=== PATIENT | female | born 2000 | race Caucasian/White ===

== ENCOUNTER 2022-07-14 17:02 | Emergency (ER) | payer MEDICAID, SELFPAY ==
[2022-07-14 17:15] VITALS: BP 155/82; PULSE 61; RESP 18; TEMP 36.1; O2SAT 100; BMI 58.5
--- NOTE | 2022-07-14 17:28 | ED.EAR ---
HPI - Ear Problem General Chief complaint: Ear Problems Stated complaint: right ear pain, discharge Time Seen by Provider: 07/14/22 17:25 Source: patient Mode of arrival: ambulatory Limitations: no limitations History of Present Illness HPI Narrative: Patient is a 22-year-old female who presents to the emergency department for evaluation of right ear pain intermittently over the past week, pain eventually subsided and then she experienced muffled hearing and clear drainage. Denies any trauma or injury to the ear. Denies any external ear pain. Denies fevers, chills, headache, rhinorrhea, nasal congestion, sore throat, neck pain, neck stiffness. Related Data Previous Rx's Medication Instructions Recorded amoxicillin 875 mg-potassium 1 tab PO Q12H 7 days #14 tabs 07/14/22 clavulanate 125 mg tablet Allergies Allergy/AdvReac Type Severity Reaction Status Date / Time No Known Allergies Allergy Unverified 05/30/20 16:39 Review of Systems Review of Systems: Constitutional: No weight loss, fever, chills, weakness or fatigue. ENT: Positive right ear drainage, pain Skin: No rash or itching. Cardiovascular: No chest pain, no palpitations Respiratory: No shortness of breath, or cough Gastrointestinal: No nausea, vomiting or diarrhea. No abdominal pain Genitourinary: No burning micturition. No urinary frequency or incontinence. Musculoskeletal: No muscle pain, back pain, joint pain or stiffness. Psychiatric: No depression or anxiety. Yes all other systems are reviewed and are negative PMFSH Past Medical History Attestation statement: The following information was validated with the patient. Source: old records reviewed Social History Social History Advance Directives: No Advance Directives Information Provided: No Physical Exam Vital Signs: Vital Signs: Last Vital Signs Temp 97.0 F 07/14/22 17:15 Pulse 61 07/14/22 17:15 Resp 18 07/14/22 17:15 BP 155/82 H 07/14/22 17:15 Pulse Ox 100 07/14/22 17:15 O2 Del Method 07/14/22 17:15 BMI result Body Mass Index 58.5 Appearance: Alert.?Oriented to person, place and time. No acute distress.?Normal affect. Eyes: Pupils equal, round and reactive to light.? ENT: Pharynx normal.??Left TM normal. Right canal, visualized black rim with central yellow discoloration appearing purulent, TM does not appear to be visualize. CVS: Heart sounds normal. Normal heart rate and rhythm.? Pulses normal.?? Respiratory: No respiratory distress.? Lung sounds clear to auscultation bilaterally?? Abdomen: Soft and non-tender. Normoactive bowel sounds. Skin: Skin warm and dry.? Normal skin color.? Extremities: No lower extremity edema.? Neuro: Moves all extremities spontaneously. Sensation intact bilaterally. No focal neuro deficits. Ambulates with normal steady gait. Course Course Course Narrative: Patient is a 22-year-old female presents emergency department for evaluation of right ear pain, discharge, and muffled hearing. Given appearance of right ear canal and history and symptoms concerning for ruptured tympanic membrane with infection at this time. Discussed with patient plan of care for discharge home, no water to the ear, no submerging the head in water, given prescription for oral antibiotic, advised outpatient follow-up with ENT/PCP. Reviewed worsening signs and symptoms to return back to emergency department for. All questions were answered, patient discharged home in stable condition. Discharge Plan Discharge Clinical Impression: Otitis media with rupture of tympanic membrane Patient Disposition: Home, Self-Care Instructions: Ruptured Eardrum (ED), Ear Infection (ED) Additional Instructions: No swimming, submerging the head under water, use of ear bud head phones. The ear should be kept dry, you can insert a cotton ball to the ear while showering Your eardrum may heal on its own, however you should follow-up with ear nose throat/ ENT specialist you have been given contact info for [facility]. Return to emergency department any new or worsening symptoms or concerns. Follow-up with your primary care provider Prescriptions: New amoxicillin-pot clavulanate 875-125 mg tablet 1 tab PO Q12H 7 Days Qty: 14 0RF Referrals: Srikanth Phillips [Physician] - Discharge Date/Time: 07/14/22 18:09
== END 2022-07-14 18:09 | disposition home or self-care (01) ==
PROVIDERS: Emergency Provider Student in an Organized Health Care Education/Training Program
DX: H66.011 Acute suppurative otitis media with spontaneous rupture of ear drum, right ear (principal)
CPT/HCPCS: 99281

== ENCOUNTER 2023-01-01 12:42 | Emergency (ER) | payer OTHER, SELFPAY ==
[2023-01-01 12:49] VITALS: BP 171/94; PULSE 90; RESP 16; TEMP 36.7; O2SAT 100; BMI 60.3
--- NOTE | 2023-01-01 12:50 | ED.GENADULT ---
HPI - General Adult General Chief complaint: Skin/Abscess/Foreign Body <Quincy Puente - Last Filed: 01/01/23 12:51> Stated complaint: Abscess Vag Area <Quincy Puente - Last Filed: 01/01/23 12:51> Time Seen by Provider: 01/01/23 13:44 <Quincy Puente - Last Filed: 01/01/23 12:51> History of Present Illness HPI narrative: Patient complains of left labial abscess for over a week, the area is painful increasingly swollen no fever no chills no vomiting no dysuria no abdominal pain no vaginal discharge <RITCHIE Yarbrough - Last Filed: 01/03/23 13:11> Related Data Home medications: Previous Rx's Medication Instructions Recorded amoxicillin 875 mg-potassium 1 tab PO Q12H 7 days #14 tabs 07/14/22 clavulanate 125 mg tablet doxycycline hyclate 100 mg capsule 100 mg PO BID 7 days #14 caps 01/01/23 ibuprofen 600 mg tablet 600 mg PO Q6H PRN pain #20 tabs 01/01/23 oxycodone 5 mg tablet 5 mg PO Q6H PRN pain #10 tabs 01/01/23 <Quincy Puente - Last Filed: 01/01/23 12:51> Allergies/adverse reactions: Allergies Allergy/AdvReac Type Severity Reaction Status Date / Time No Known Allergies Allergy Unverified 05/30/20 16:39 <Quincy Puente - Last Filed: 01/01/23 12:51> [facility] Past Medical History Source: nursing notes reviewed <RITCHIE Yarbrough - Last Filed: 01/03/23 13:11> Social History Social History: Social History Advance Directives: No <Quincy Puente - Last Filed: 01/01/23 12:51> Physical Exam ED Vital Signs: Vital Signs - 24 hr 01/01/23 12:49 Temperature 98.1 F Pulse Rate 90 Respiratory Rate 16 Blood Pressure 171/94 H Pulse Oximetry 100 Oxygen Delivery Method Room Air BMI result Body Mass Index 60.3 <Quincy Puente - Last Filed: 01/01/23 12:51> Vital Signs - 24 hr 01/01/23 12:49 Temperature 98.1 F Pulse Rate 90 Respiratory Rate 16 Blood Pressure 171/94 H Pulse Oximetry 100 Oxygen Delivery Method Room Air BMI result Body Mass Index 60.3 <RITCHIE Yarbrough - Last Filed: 01/03/23 13:11> General appearance no distress Neck is supple Respiratory no distress Abdomen soft nontender Genital exam there is of the area of redness swelling and fluctuance in left labia without any surrounding erythema or cellulitis, no obvious discharge no other lesions <RITCHIE Yarbrough - Last Filed: 01/03/23 13:11> Course Course Course Narrative: RME- 22-year-old female presents for evaluation of a cyst to her groin. Reports this started 4 days ago. Denies fevers and chills <Quincy Puente - Last Filed: 01/01/23 12:51> RME- 22-year-old female presents for evaluation of a cyst to her groin. Reports this started 4 days ago. Denies fevers and chills Left labial abscess procedure note The area is cleansed with Betadine Anesthesia was 8 cc of 1% lidocaine Of 0 1 cm incision is made It was probed with forceps breaking up loculations with discharge of copious bloody pus Packing is placed Dressing is applied <RITCHIE Yarbrough - Last Filed: 01/03/23 13:11> Medications Administered Discontinued Medications Generic Name Dose Route Start Last Admin Trade Name Freq PRN Reason Stop Dose Admin Doxycycline Monohydrate 100 mg 01/01/23 14:48 01/01/23 14:54 Doxycycline Monohydrate 100 Mg Capsule PO 01/01/23 14:49 100 mg ONCE ONE Administration Lidocaine HCl 5 ml 01/01/23 14:48 01/01/23 14:54 Lidocaine Hcl 1 % Mpf 5 Ml Vial SUBCUT 01/01/23 14:49 5 ml ONCE ONE Administration Lidocaine HCl 5 ml 01/01/23 14:48 01/01/23 14:55 Lidocaine Hcl 1 % Mpf 5 Ml Vial SUBCUT 01/01/23 14:49 5 ml ONCE ONE Administration <Quincy Puente - Last Filed: 01/01/23 12:51> Medications Administered Discontinued Medications Generic Name Dose Route Start Last Admin Trade Name Freq PRN Reason Stop Dose Admin Doxycycline Monohydrate 100 mg 01/01/23 14:48 01/01/23 14:54 Doxycycline Monohydrate 100 Mg Capsule PO 01/01/23 14:49 100 mg ONCE ONE Administration Lidocaine HCl 5 ml 01/01/23 14:48 01/01/23 14:54 Lidocaine Hcl 1 % Mpf 5 Ml Vial SUBCUT 01/01/23 14:49 5 ml ONCE ONE Administration Lidocaine HCl 5 ml 01/01/23 14:48 01/01/23 14:55 Lidocaine Hcl 1 % Mpf 5 Ml Vial SUBCUT 01/01/23 14:49 5 ml ONCE ONE Administration <RITCHIE Yarbrough - Last Filed: 01/03/23 13:11> Discharge Plan Discharge Clinical Impression: Abscess of labia <Quincy Puente - Last Filed: 01/01/23 12:51> Patient Disposition: Home, Self-Care <Quincy Puente - Last Filed: 01/01/23 12:51> Additional Instructions: Pus was drained from the area but it remains swollen and inflamed Use doxycycline antibiotic as directed Return to the ER any time for increased pain swelling fever any worse condition or any concerns Return to the ER in 2 days for packing removal and wound check Follow with pipe organ technician <Quincy Puente - Last Filed: 01/01/23 12:51> Prescriptions: New doxycycline hyclate 100 mg capsule 100 mg PO BID 7 Days Qty: 14 0RF ibuprofen 600 mg tablet 600 mg PO Q6H PRN (Reason: pain) Qty: 20 0RF oxycodone 5 mg tablet 5 mg PO Q6H PRN (Reason: pain) Qty: 10 0RF Rx Instructions: Partial Fill upon patient request. No Action amoxicillin-pot clavulanate 875-125 mg tablet 1 tab PO Q12H 7 Days Qty: 14 0RF <Quincy Puente - Last Filed: 01/01/23 12:51> Referrals: Rajesh Li MD [Physician] - (Labial abscess) <Quincy Puente - Last Filed: 01/01/23 12:51> Stand Alone Forms: Work/School Release <Quincy Puente - Last Filed: 01/01/23 12:51> Interventions: ED Discharge Assessment Last Done: 01/01/23 15:30 <Quincy Puente - Last Filed: 01/01/23 12:51> Discharge Date/Time: 01/01/23 15:30 <Quincy Puente - Last Filed: 01/01/23 12:51>
[2023-01-01] MEDS: Lidocaine HCl 1 % MPF 5 ML VIAL SUBCUT ×2 (14:54→14:55)
[2023-01-01] MEDS: Doxycycline Monohydrate 100 MG CAPSULE PO (14:54)
== END 2023-01-01 15:30 | disposition home or self-care (01) ==
PROVIDERS: Emergency Provider Emergency Medicine Emergency Medical Services
DX: N76.4 Abscess of vulva (principal); Z79.899 Other long term (current) drug therapy
CPT/HCPCS: 56405; 87070; 87205; 99282; 99283; 99284

== ENCOUNTER 2023-01-03 14:41 | Emergency (ER) | payer OTHER, SELFPAY ==
[2023-01-03 15:14] VITALS: BP 153/86; PULSE 91; RESP 18; TEMP 36.6; O2SAT 98; BMI 60.3
--- NOTE | 2023-01-03 15:16 | ED.GENADULT ---
HPI - General Adult General Chief complaint: Skin/Abscess/Foreign Body <Quincy Puente - Last Filed: 01/03/23 15:17> Stated complaint: Needs packing removed from abscess <Quincy Puente - Last Filed: 01/03/23 15:17> Time Seen by Provider: 01/03/23 16:42 <Quincy Puente - Last Filed: 01/03/23 15:17> History of Present Illness HPI narrative: Patient presents for wound check after I&D of left labial abscess 2 days ago, patient states it has improved but it still hurts, denies any fever denies any increased swelling <RITCHIE Yarbrough - Last Filed: 01/03/23 17:09> Related Data Home medications: Previous Rx's Medication Instructions Recorded amoxicillin 875 mg-potassium 1 tab PO Q12H 7 days #14 tabs 07/14/22 clavulanate 125 mg tablet doxycycline hyclate 100 mg capsule 100 mg PO BID 7 days #14 caps 01/01/23 ibuprofen 600 mg tablet 600 mg PO Q6H PRN pain #20 tabs 01/01/23 oxycodone 5 mg tablet 5 mg PO Q6H PRN pain #10 tabs 01/01/23 acetaminophen 500 mg tablet 1,000 mg PO QID PRN pain #30 tabs 01/03/23 oxycodone 5 mg tablet 5 mg PO Q6H PRN pain #5 tabs 01/03/23 <Quincy Puente - Last Filed: 01/03/23 15:17> Allergies/adverse reactions: Allergies Allergy/AdvReac Type Severity Reaction Status Date / Time No Known Allergies Allergy Verified 01/03/23 15:14 <Quincy Puente - Last Filed: 01/03/23 15:17> [facility] Past Medical History Source: nursing notes reviewed <RITCHIE Yarbrough - Last Filed: 01/03/23 17:09> Social History Social History: Social History Advance Directives: No Advance Directives Information Provided: Yes <Quincy Puente - Last Filed: 01/03/23 15:17> Physical Exam ED Vital Signs: Vital Signs - 24 hr 01/03/23 15:14 Temperature 97.9 F Pulse Rate 91 Respiratory Rate 18 Blood Pressure 153/86 H Pulse Oximetry 98 Oxygen Delivery Method Room Air BMI result Body Mass Index 60.3 <Quincy Puente - Last Filed: 01/03/23 15:17> Vital Signs - 24 hr 01/03/23 15:14 Temperature 97.9 F Pulse Rate 91 Respiratory Rate 18 Blood Pressure 153/86 H Pulse Oximetry 98 Oxygen Delivery Method Room Air BMI result Body Mass Index 60.3 <RITCHIE Yarbrough - Last Filed: 01/03/23 17:09> General appearance no acute distress, common cooperative Genital exam packing is removed from left labial abscess cavity which is much less swollen no longer red there is no fluctuance there is some induration, no surrounding erythema <RITCHIE Yarbrough - Last Filed: 01/03/23 17:09> Course Course Course Narrative: 22-year-old female presents for evaluation of an abscess to her left groin. She was seen here 2 days ago and had an abscess drained and packed. She reports that she is here for packing removal but still has pain and swelling to the area. Not visualized triage <Quincy Puente - Last Filed: 01/03/23 15:17> 22-year-old female presents for evaluation of an abscess to her left groin. She was seen here 2 days ago and had an abscess drained and packed. She reports that she is here for packing removal but still has pain and swelling to the area. Not visualized triage Status post I&D of left labial abscess which was done by me 2 days ago, there is much less swelling there is no longer any fluctuance there is still induration, erythema is very improved, no surrounding erythema After packing was removed a new dressing is placed and patient is discharged <RITCHIE Yarbrough - Last Filed: 01/03/23 17:09> Discharge Plan Discharge Clinical Impression: Wound check, abscess <Quincy Puente - Last Filed: 01/03/23 15:17> Patient Disposition: Home, Self-Care <Quincy Puente - Last Filed: 01/03/23 15:17> Additional Instructions: The abscess looks very improved and no longer feels like there is any fluid in it Thickened infected tissue is still present but very improved from last time, redness is very improved and likely this will continue improve day by day Return any time for increased pain and swelling, spreading redness, fever, any sign of reaccumulation of abscess any worse condition or any concerns <Quincy Puente - Last Filed: 01/03/23 15:17> Prescriptions: New acetaminophen 500 mg tablet 1,000 mg PO QID PRN (Reason: pain) Qty: 30 0RF oxycodone 5 mg tablet 5 mg PO Q6H PRN (Reason: pain) Qty: 5 0RF Rx Instructions: Partial Fill upon patient request. No Action amoxicillin-pot clavulanate 875-125 mg tablet 1 tab PO Q12H 7 Days Qty: 14 0RF doxycycline hyclate 100 mg capsule 100 mg PO BID 7 Days Qty: 14 0RF ibuprofen 600 mg tablet 600 mg PO Q6H PRN (Reason: pain) Qty: 20 0RF oxycodone 5 mg tablet 5 mg PO Q6H PRN (Reason: pain) Qty: 10 0RF Rx Instructions: Partial Fill upon patient request. <Quincy Puente - Last Filed: 01/03/23 15:17> Referrals: Rajesh Li MD [Physician] - (Post I and D of labial abscess) <Quincy Puente - Last Filed: 01/03/23 15:17> Stand Alone Forms: Work/School Release <Quincy Puente - Last Filed: 01/03/23 15:17>
== END 2023-01-03 17:24 | disposition home or self-care (01) ==
PROVIDERS: Emergency Provider Emergency Medicine Emergency Medical Services
DX: N76.4 Abscess of vulva (principal)
CPT/HCPCS: 99282

== ENCOUNTER 2025-06-07 18:54 | Emergency (ER) | payer OTHER, MEDICAID, SELFPAY ==
--- NOTE | 2025-06-07 | ECG_ITS ---
Test Reason : FALL Blood Pressure : */* mmHG Vent. Rate : 82 BPM Atrial Rate : 82 BPM P-R Int : 160 ms QRS Dur : 78 ms QT Int : 384 ms P-R-T Axes : 33 6 6 degrees QTcB Int : 448 ms Normal sinus rhythm Minimal voltage criteria for LVH, may be normal variant ( R in aVL ) Cannot rule out Anterior infarct , age undetermined Abnormal ECG When compared with ECG of 21-Jan-2019 06:35, No significant change was found Referred By: Generic ED Physician Electronically Signed By: Renny Flowers
--- NOTE | ~2025-06-07 | XR_ITS ---
CLINICAL HISTORY: fall with pain 3 view right elbow Comparison: None provided Findings: No acute fractures. Normal alignment. No significant arthritic change or erosions. No joint effusion. No radiopaque foreign body. IMPRESSION: 1. No acute fracture. This document has been electronically signed by: Libertad Fletcher MD on 06/07/2025 20:30:37
--- NOTE | ~2025-06-07 | CT_ITS ---
CLINICAL HISTORY: neck trauma CT cervical spine without contrast Comparison: None provided Findings: Straightening of the normal cervical lordosis. No significant degenerative change. No acute fractures or dislocations. Visualized intracranial contents are unremarkable. No cervical fluid collections or masses. Lung apices are clear. IMPRESSION: No acute traumatic abnormality in the cervical spine. This document has been electronically signed by: Libertad Fletcher MD on 06/07/2025 21:55:15
--- NOTE | ~2025-06-07 | CT_ITS ---
CLINICAL HISTORY: head trauma CT head without contrast Comparison: None provided Findings: BRAIN: No acute infarct, hemorrhage, or mass effect. No abnormal atrophy. CSF SPACES: No hydrocephalus or effacement of basal cisterns. SKULL: No calvarial fracture. SINUSES: No significant mucosal thickening or effusion on limited views. ORBITS: Limited views are unremarkable. OTHER: Left frontal scalp hematoma. IMPRESSION: 1. No acute intracranial findings. This document has been electronically signed by: Libertad Fletcher MD on 06/07/2025 21:56:03
[2025-06-07 18:59] VITALS: BP 142/84; PULSE 102; O2SAT 98; BMI 65.0
[2025-06-07 19:34] LABS: MANUAL DIFF FLAG NO
[2025-06-07 19:37] LABS: Hematocrit 36.0 % (37.0-47.0); Hemoglobin 11.9 g/dl (12.0-16.0); Imm Gran Abs Auto 0.02 X10*3/uL (0.00-0.03); Imm Gran Pct Auto 0.2 % (0.0-0.4); Lymphocytes Absolute Auto 2.4 X10*3/uL (1.2-4.9); Mean Corpuscular HGB Conc 33.1 g/dl (31.0-35.0); Mean Corpuscular Hemoglobin 27.0 pg (27.0-33.0); Mean Corpuscular Volume 81.6 fL (80.0-98.0); NRBC Abs Auto 0.000 X10*3/uL (0.0-0.012); NRBC Pct Auto 0.0 /100WBC (0.0-0.2); Platelet Count 356 X10*3/uL (160-400); Red Blood Count 4.41 X10*6/uL (4.20-5.50); White Blood Count 8.9 X10*3/uL (4.8-10.8)
[2025-06-07] MEDS: oxyCODONE HCl Immed Release 5 MG TABLET PO (19:41)
[2025-06-07 19:50] LABS: Alanine Aminotransferase 21 U/L (0-31); Albumin Level 4.0 g/dL (3.5-5.0); Alkaline Phosphatase 104 U/L (39-117); Anion Gap 14 (12-20); Aspartate Amino Transferase 39 U/L (5-31); Blood Urea Nitrogen 7 mg/dL (9-16); Calcium 8.7 mg/dL (8.4-10.2); Carbon Dioxide 22 mmol/L (22-29); Chloride 107 mmol/L (96-108); Creatinine Clr Calc Pharmacy 150.0; Estimated Glomerular Filt Rate > 60; Potassium 4.2 mmol/L (3.3-5.1); Sodium 139 mmol/L (135-145); Total Protein 7.6 g/dL (6.5-8.0)
--- NOTE | 2025-06-07 19:56 | ED.GENADULT ---
HPI - General Adult General Chief complaint: Fall Stated complaint: Head 1st down 4 cement stairs -LOC, no pain Time Seen by Provider: 06/07/25 19:17 Source: patient Mode of arrival: ambulatory Limitations: no limitations History of Present Illness ED Provider: Dr. Cole HPI narrative: 25-year-old female presented hospital today after a fall. Patient has fell down concrete steps and landed on her left face. She is complaining of pain over her left periorbital area. Denies any loss of consciousness. 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 Denies any injury in her other extremities or abdomen or chest. Related Data Previous Rx's ?Medication ?Instructions ?Recorded amoxicillin 875 mg-potassium 1 tab PO Q12H 7 days #14 tabs 07/14/22 clavulanate 125 mg tablet doxycycline hyclate 100 mg capsule 100 mg PO BID 7 days #14 caps 01/01/23 ibuprofen 600 mg tablet 600 mg PO Q6H PRN pain #20 tabs 01/01/23 oxycodone 5 mg tablet 5 mg PO Q6H PRN pain #10 tabs 01/01/23 acetaminophen 500 mg tablet 1,000 mg (2 x 500 mg) PO QID PRN 01/03/23 pain #30 tabs oxycodone 5 mg tablet 5 mg PO Q6H PRN pain #5 tabs 01/03/23 oxycodone 5 mg tablet 5 mg PO Q8H PRN pain #10 tabs 06/07/25 Allergies Allergy/AdvReac Type Severity Reaction Status Date / Time No Known Allergies Allergy Verified 06/07/25 19:03 Review of Systems Review of Systems: Pertinent review of systems as mentioned in HPI. All other system otherwise negative. [facility] Past Medical History [facility] Narrative: Medical history as mentioned in [facility] Social History Social History Smoked in Last 30 Days: No Use of substances other than those prescribed or required for medical reasons: No Advance Directives: No Advance Directives Information Provided: Yes Physical Exam ED Exam Exam: General: Pleasant, no distress, interacting appropriately Head: Normacephalic, abrasion of the left periorbital area and left upper philtrum of the lip ENT: oral mucosa moist, neck supple, no tracheal deviation Cardiovascular: regular rate, regular rhythm, no murmurs, rubbing, gallops, no ecchymosis Respiratory: CTAB, no wheeze, rales, rhonchi Gastrointestinal: Soft, non distended, non tender, non guarding, no ecchymosis Extremities: No limb pain or swelling, no calf tenderness Neurological: Awake and alert, no facial droop noted Skin: Warm and dry Psychiatric: Appropriate mood and thoughts Vital Signs: Vital Signs - 24 hr 06/07/25 22:03 06/07/25 22:43 06/07/25 22:43 Temperature 98.3 F 98.3 F 98.3 F Pulse Rate 84 84 84 Respiratory Rate 20 20 20 Blood Pressure 156/94 H 156/94 H 156/94 H Pulse Oximetry 96 96 96 Oxygen Delivery Method Room Air Room Air Room Air BMI result Body Mass Index 65.0 Medications Administered Discontinued Medications Generic Name Dose Route Start Last Admin Trade Name Freq PRN Reason Stop Dose Admin Acetaminophen 975 mg 06/07/25 22:01 06/07/25 22:04 Acetaminophen 325 Mg Tablet PO 06/07/25 22:02 975 mg ONCE ONE Administration Diphtheria/Tetanus/Acell Pertussis 0.5 ml 06/07/25 20:28 06/07/25 20:43 Diphth,Pertus(Acell),Tet Adult 0.5 Ml Syringe IM 06/07/25 20:29 0.5 ml .ONCE ONE Administration Oxycodone HCl 5 mg 06/07/25 19:18 06/07/25 19:41 Oxycodone Hcl Immed Release 5 Mg Tablet PO 06/07/25 19:19 5 mg ONCE ONE Administration Medical Decision Making Medical Decision Making [facility] Narrative: 25-year-old female presented hospital today after sustained an abrasion to her left-sided face after falling. This wound was cleaned out and irrigated and dressed. Patient's CT imaging was obtained a CT C-spine was obtained this were negative. Tylenol given for headache. Patient has no further signs of traumatic injury. Patient will be discharged home. Differential Diagnosis Differential Diagnoses: The differential diagnosis associated with the presentation includes Intracranial hemorrhage, cervical spine fracture, abrasion, facial laceration Lab Data [facility] Lab Attestation statement: I reviewed the patient's lab results. 06/07/25 19:31 06/07/25 19:31 Labs: Lab Results 09/25/25 Range/Units 19:31 WBC 8.9 (4.8-10.8) X10*3/uL RBC 4.41 (4.20-5.50) X10*6/uL Hgb 11.9 L (12.0-16.0) g/dl Hct 36.0 L (37.0-47.0) % MCV 81.6 (80.0-98.0) fL MCH 27.0 (27.0-33.0) pg MCHC 33.1 (31.0-35.0) g/dl RDW 12.1 (11.0-16.0) % Plt Count 356 (160-400) X10*3/uL MPV 9.6 (9.4-12.3) fL Immature Gran % (Auto) 0.2 (0.0-0.4) % Neut % (Auto) 67.0 (45-73) % Lymph % (Auto) 27.1 (20-40) % Randall % (Auto) 4.4 (2-11) % Eos % (Auto) 1.0 (0-4) % Baso % (Auto) 0.3 (0-2) % Lymph # (Auto) 2.4 (1.2-4.9) X10*3/uL Randall # (Auto) 0.4 (0.1-1.2) X10*3/uL Eos # (Auto) 0.1 (0.0-0.4) X10*3/uL Baso # (Auto) 0.0 (0.0-0.2) X10*3/uL Abs Immat Gran (auto) 0.02 (0.00-0.03) X10*3/uL Absolute Neuts (auto) 5.9 (2.0-8.3) x10*3/uL Absolute Nucleated RBC 0.000 (0.0-0.012) X10*3/uL Nucleated RBC % (auto) 0.0 (0.0-0.2) /100WBC Sodium 139 (135-145) mmol/L Potassium 4.2 (3.3-5.1) mmol/L Chloride 107 (96-108) mmol/L Carbon Dioxide 22 (22-29) mmol/L Anion Gap 14 (12-20) BUN 7 L (9-16) mg/dL Creatinine 0.84 (0.5-1.4) mg/dL Estim Creat Clear Calc 150.0 Estimated GFR > 60 Random Glucose 121 H (60-115) mg/dL Calcium 8.7 (8.4-10.2) mg/dL Total Bilirubin 0.3 (0.0-1.0) mg/dL AST 39 H (5-31) U/L ALT 21 (0-31) U/L Alkaline Phosphatase 104 (39-117) U/L Total Protein 7.6 (6.5-8.0) g/dL Albumin 4.0 (3.5-5.0) g/dL Beta HCG, Quant < 2 mIU/mL Independent Interpretation I performed an independent interpretation of an: CT Scan Radiology Impression Discussion of test interpretation with radiology: I have reviewed the radiologist's reading. Discharge Plan Discharge Clinical Impression: Abrasion Fall Qualifiers: Encounter type: initial encounter Qualified Code(s): W19.XXXA - Unspecified fall, initial encounter Patient Disposition: Home, Self-Care Prescriptions: New oxycodone 5 mg tablet 5 mg PO Q8H PRN (Reason: pain) Qty: 10 0RF Rx Instructions: Partial Fill upon patient request. No Action amoxicillin-pot clavulanate 875-125 mg tablet 1 tab PO Q12H 7 Days Qty: 14 0RF doxycycline hyclate 100 mg capsule 100 mg PO BID 7 Days Qty: 14 0RF ibuprofen 600 mg tablet 600 mg PO Q6H PRN (Reason: pain) Qty: 20 0RF oxycodone 5 mg tablet 5 mg PO Q6H PRN (Reason: pain) Qty: 10 0RF Rx Instructions: Partial Fill upon patient request. acetaminophen 500 mg tablet 1,000 mg PO QID PRN (Reason: pain) Qty: 30 0RF oxycodone 5 mg tablet 5 mg PO Q6H PRN (Reason: pain) Qty: 5 0RF Rx Instructions: Partial Fill upon patient request. Interventions: ED Discharge Assessment Last Done: 06/07/25 22:43 Discharge Date/Time: 06/07/25 22:43 Print Language: Portuguese
--- OUTSIDE RECORDS SUMMARY | 2025-06-07 20:18 | XMS_ITS | Encounter Summary ---
Author Organization [facility] Address [address] [place] [address] Care Team Providers Care Optical Goods Worker Name Role Phone Jada Chicas PhD Unavailable [phone] Sheridan Drew APRN Primary Care Provider [phone] Perla Lepe MD Unavailable Encounter Details Date Type Department Care Team (Late st Contact Info) Description 07/19/2023 Scanned Document [facility] EMERGENCY MED SCAN Emergency Medicine, Scan Social History Tobacco Use Types Packs/Day Years Used Date Smoking Tobacco: Never Smokeless Tobacco: Never Alcohol Use Standard Drinks/Week Comments Not Currently 0 (1 standard drink = 0.6 oz pur e alcohol) Social Connection and Isolat ion Panel [NHANES] Answer Date Recorded In a typical week, how many times do you talk on the phone with family, friends, or neighbors? More than three times a week 06/02/2022 How often do you get togethe r with friends or relatives? Once a week 06/02/2022 How often do you attend chur or pentecostalism services? Never 06/02/2022 Do you belong to any clubs o r organizations such as episcopal groups, unions, fraternal or athletic groups, or school groups? No 06/02/2022 How often do you attend meet ings of the clubs or organizations you belong to? Patient declined 06/02/2022 Are you , , di vorced, , never , or living with a partner? 06/02/2022 AUDIT-C Answer Date Recorded Q1: How often do you have a drink containing alc ohol? 2-4 times a month 06/02/2022 Q2: How many drinks containi ng alcohol do you have on a typical day when you are drinking? 1 or 2 06/02/2022 Q3: How often do you have si x or more drinks on one occasion? Never 06/02/2022 Overall Financial Resource Strain (CARDIA) Answe r Date Recorded How hard is it for you to pa y for the very basics like food, housing, medical care, and heating? Somewhat hard 06/02/2022 PHQ-2 Answer Date Recorded PHQ-2 Total Score 0 10/16/2021 [facility] of Occupat ional [facility] - Occupational Stress Questionnaire Answer Date Recorded Do you feel stress - tense, restless, nervous, or anxious, or unable to sleep at night because your mind is troubled all the time - these days? Very much 06/02/2022 Hunger Vital Sign Answer Date Recorded Within the past 12 months, y ou worried that your food would run out before you got the money to buy more. Sometimes true Within the past 12 months, t he food you bought just didn't last and you didn't have money to get more. Sometimes true PRAPARE - Transportation Answer Date Re corded In the past 12 months, has l ack of transportation kept you from medical appointments or from getting medications? Yes 05/15 In the past 12 months, has l ack of transportation kept you from meetings, work, or from getting things needed for daily living? No 06/02/2022 Physical Activity Answer Date Recorded Days of Exercise per Week 5 days 2021 Minutes of Exercise per Session 30 min 06/02/2022 Education Answer Date Recorded What is the highest level of school you have completed or the highest degree you have received? 12th grade 06/02/2022 Comments No Sex and Gender Information Value Date Recorded Sex Assigned at Female 08/11/2023 1:13 PM EST Legal Sex Female 1:51 PM EST Gender Identity Female 11/06/2020 1:34 PM EST Sexual Orientation Heterosexual (straight) 11/06 1:34 PM EST documented as of this encounter Plan of Treatment Upcoming Encounters Date Type Department Care Team (Late st Contact Info) Description 06/12/2025 9:00 AM EDT Visit [facility] Women's Ambulatory Health Services [address] [place] [phone] Drea Paredes MD [address] [place] [address] 06/13/2025 2:00 PM EDT Office Visit [facility] Cardiology [place] [address] [place] [address] [place] [phone] Adelso Esparza, SOCIAL DIRECTOR [address] [address] 07/05/2025 3:00 PM EDT Consult [facility] Medical Weight Loss [place] [address] [place] [phone] Sheeba Rojo PA-C 330 [facility] [address] [place] [address] Breonna Orozco PA-C 2 [facility] [address] [place] [address] documented as of this encounter Visit Diagnoses Not on filedocumented in this encounter Care Teams Optical Goods Worker Relationship Specialty Start Date End Date Sheridan Drew APRN [address] [place] [address] PCP - General Family Medicine 08/23/20 Jada Chicas, PhD [address] [facility] [address] [place] [address] Clinical Psychologist Psychology 04/01/20 Perla Lepe MD [address] [place] [address] Obstetrics and Gynecology 12/06/24 documented as of this encounter
--- OUTSIDE RECORDS SUMMARY | 2025-06-07 20:18 | XMS_ITS | Encounter Summary ---
Author Organization [facility] Address [address] [place] [address] Care Team Providers Care Casino Accountant Name Role Phone Jada Chicas PhD Unavailable [phone] Sheridan Drew APRN Primary Care Provider [phone] Perla Lepe MD Unavailable Encounter Details Date Type Department Care Team (Late st Contact Info) Description 06/05/2025 Documentation [facility] Women[facility] Ambulatory Health Services [address] [place] [phone] Gloria Noland RN [address] [place] [address] Social History Tobacco Use Types Packs/Day Years Used Date Smoking Tobacco: Never Smokeless Tobacco: Never Alcohol Use Standard Drinks/Week Comments Not Currently 0 (1 standard drink = 0.6 oz pur e alcohol) [facility] Utilities Answer Date Recorded In the past 12 months has [employer], gas, oil, or water [employer] threatened to shut off services in your home? No 04/29/2025 Social Connection and Isolation Panel [NHANES] A nswer Date Recorded In a typical week, how many times do you talk on the phone with family, friends, or neighbors? Three times a week 02/26/2025 Frequency of Social Gatherin gs with Friends and Family Not on file 02/26/2025 Attends Episcopalian Services Not on file 02/26 Active Member of Clubs or Organizations Not on f ile 02/26/2025 Attends Club or Organization Meetings Not on jacob e 02/26/2025 Marital Status Not on file 02/26/2025 AUDIT-C Answer Date Recorded Q1: How often do you have a drink containing alcohol? Never 04/29/2025 Q2: How many drinks containi ng alcohol do you have on a typical day when you are drinking? Patient does not drink Q3: How often do you have si x or more drinks on one occasion? Never 04/29/2025 Overall Financial Resource Strain (CARDIA) Answe r Date Recorded How hard is it for you to pa y for the very basics like food, housing, medical care, and heating? Somewhat hard 06/02/2022 PHQ-2 Answer Date Recorded PHQ-2 Total Score 0 02/26/2025 [facility] of Occupat ional Health - Occupational Stress Questionnaire Answer Date Recorded Do you feel stress - tense, restless, nervous, or anxious, or unable to sleep at night because your mind is troubled all the time - these days? Not at all 03/20/2024 Hunger Vital Sign Answer Date Recorded Within the past 12 months, y ou worried that your food would run out before you got the money to buy more. Never true 04/29/20 25 Within the past 12 months, t he food you bought just didn't last and you didn't have money to get more. Never true 04/29/2025 PRAPARE - Transportation Answer Date Re corded In the past 12 months, has l ack of transportation kept you from medical appointments or from getting medications? No 04/13 In the past 12 months, has l ack of transportation kept you from meetings, work, or from getting things needed for daily living? No 04/29/2025 [place] Depression Scale Answer Date Recorded [place] Depression Scale Total 0 05/02/2025 The thought of harming myself has occurred to me . Never 05/02/2025 Housing Stability Vital Sign Answer Mack e Recorded In the last 12 months, was t here a time when you were not able to pay the mortgage or rent on time? No 04/29/2025 In the past 12 months, how m any times have you moved where you were living? 0 04/29/2025 At any time in the past 12 m [facility], were you homeless or living in a correction (including now)? No 04/29/2025 Physical Activity Answer Date Recorded On average, how many days pe r week do you engage in moderate to strenuous exercise (like a brisk walk)? 4 days 02/26/2025 On average, how many minutes do you exercise per day at this level? 0 min 02/26/2025 Education Answer Date Recorded What is the highest level of school you have completed or the highest degree you have received? Some college, no degree 02/26/2025 Comments No Sex and Gender Information Value Date Recorded Sex Assigned at Female 08/11/2023 1:13 PM EST Legal Sex Female 1:51 PM EST Gender Identity Female 11/06/2020 1:34 PM EST Sexual Orientation Heterosexual (straight) 11/06 1:34 PM EST documented as of this encounter Progress Notes * Gloria Noland RN - 06/05/2025 3:54 PM EDT Nurse Navigator follow-up message sent to patient via Graph[employer]. (Email or text message sent by system if patient does not have Ritan[employer]). Explanation of role, available services and contact information provided. Appropriate resources given. documented in this encounter Plan of Treatment Upcoming Encounters Date Type Department Care Team (Late st Contact Info) Description 06/12/2025 9:00 AM EDT Visit [facility] Services [address] [place] [phone] Drea Paredes MD [address] [place] [address] 06/13/2025 2:00 PM EDT Office Visit [facility] Cardiology [address] [place] [phone] Adelso Esparza APRN [address] [place] [address] [place] [address] 07/05/2025 3:00 PM EDT Consult [facility] Medical Weight Loss [place] [address] [place], [place] [phone] Sheeba Rojo PA-C 330 [facility] 200 [place] [address] Breonna Orozco PA-C 2 [facility] 100 [place] [address] documented as of this encounter Visit Diagnoses Not on filedocumented in this encounter Care Teams Casino Accountant Relationship Specialty Start Date End Date Sheridan Drew APRN [address] [place] [address] PCP - General Family Medicine 08/23/20 Jada Chicas, PhD 200 [facility], [address] [place] [address] Clinical Psychologist Psychology 04/01/20 Perla Lepe MD [address] [place] [address] Obstetrics and Gynecology 12/06/24 documented as of this encounter
--- OUTSIDE RECORDS SUMMARY | 2025-06-07 20:18 | XMS_ITS | Encounter Summary ---
Author Organization [facility] Address [address] [place] [address] Care Team Providers Care Chief Port Director Name Role Phone Jada Chicas PhD Unavailable [phone] Sheridan Drew APRN Primary Care Provider [phone] Perla Lepe MD Unavailable Encounter Details Date Type Department Care Team (Late st Contact Info) Description 06/04/2025 Telephone [facility] Department of Pulmonology [place] 1260 [facility] [address] [place] [phone] Leyla Cruz MD 1260 [facility] [place] [address] [place], [place] [phone] Social History Tobacco Use Types Packs/Day Years Used Date Smoking Tobacco: Never Smokeless Tobacco: Never Alcohol Use Standard Drinks/Week Comments Not Currently 0 (1 standard drink = 0.6 oz pur e alcohol) [facility] Utilities Answer Date Recorded In the past 12 months has [employer], gas, oil, or water company threatened to shut off services in your home? No 04/29/2025 Social Connection and Isolation Panel [NHANES] A nswer Date Recorded In a typical week, how many times do you talk on the phone with family, friends, or neighbors? Three times a week 02/26/2025 Frequency of Social Gatherin gs with Friends and Family Not on file 02/26/2025 Attends Yarsani Services Not on file 02/26 Active Member [...] Date Recorded PHQ-2 Total Score 0 02/26/2025 [facility] of Occupat ional Health - Occupational Stress [...] things needed for daily living? No 04/29/2025 [place] Depression Scale Answer Date Recorded [place] Depression Scale Total 0 05/02/2025 The thought [...] any time in the past 12 m [facility], were you homeless or living in a fpc (including now)? 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 * Telephone Encounter - Felton Santamaria MA - 06/04/2025 10:22 AM EDT ----- Message from Mushroom Growing Supervisor Felton Leonard MA sent at 05/31/2025 9:05 AM EDT ----- Maria Alejandra contacted me yesterday stated they need a new script isend it a new script today ----- Message ----- From: Felton Santamaria MA Sent: 05/28/2025 1:05 PM EDT To: Felton Santamaria MA; Leyla Blair# I spoke with maria alejandra she is going to get keli sawyer one of the rt to get this set up ----- Message ----- From: Felton Santamaria MA Sent: 05/15/2025 3:55 PM EDT To: CLAUDY Mabry message me back pt is getting scheduled for new cpap ----- Message ----- From: Felton Santamaria MA Sent: 05/10/2025 8:19 AM EDT To: Felton Santamaria MA Ask maria alejandra again if theres any updates on this cpap ----- Message ----- From: Felton Santamaria MA Sent: 05/08/2025 8:01 AM EDT To: Felton Santamaria MA I ask sangita ramiro an update about this ----- Message ----- From: Annabel Teixeira Sent: 05/07/2025 3:40 PM EDT To: Felton Santamaria MA I called Abelardo because we received a referral from her OB for her to have an appointment, she had spoken with us back in February about her cpap but she has still not received the machine. Can you please look into this and give her a call back. documented in this encounter Plan of Treatment Upcoming Encounters Date Type Department Care Team (Late st Contact Info) Description 06/12/2025 9:00 AM EDT Visit [facility] Women's Ambulatory Health Services [address] [place] [phone] Drea Paredes MD [address] [place] [address] 06/13/2025 2:00 PM EDT Office Visit [facility] Cardiology [address] [place] [phone] Adelso Esparza, PICKLING TANK OPERATOR 100 [facility] [address] [place] [address] 07/05/2025 3:00 PM EDT Consult [facility] Medical Weight Loss [address] [phone] Sheeba Rojo PA-C 330 [facility] 200 [place] [address] Breonna Orozco PA-C 2 [facility] 100 [place] [address] documented as of this encounter Visit Diagnoses Not on filedocumented in this encounter Care Teams Chief Port Director Relationship Specialty Start Date End Date Sheridan Drew APRN [address] [place] [address] PCP - General Family Medicine 08/23/20 Jada Chicas, PhD [address] [address] Clinical Psychologist Psychology 04/01/20 Perla Lepe MD [address] [place] [address] Obstetrics and Gynecology 12/06/24 documented as of this encounter
--- OUTSIDE RECORDS SUMMARY | 2025-06-07 20:18 | XMS_ITS | Encounter Summary ---
Author Organization [facility] Address [address] [place] [address] Care Team Providers Care Director Of Cardiopulmonary Services Name Role Phone Jada Chicas PhD Unavailable [phone] Sheridan Drew APRN Primary Care Provider [phone] Perla Lepe MD Unavailable Encounter Details Date Type Department Care Team (Late st Contact Info) Description 11/20/2024 Scanned Document [facility] EMERGENCY MED SCAN Emergency Medicine, Scan Social History Tobacco Use Types Packs/Day Years Used Date Smoking Tobacco: Never Smokeless Tobacco: Never Alcohol Use Standard Drinks/Week Comments Yes 0 (1 standard drink = 0.6 oz pur e alcohol) Occa Social Connection and Isolat ion Panel [NHANES] Answer Date Recorded In a typical week, how many times do you talk on the phone with family, friends, or neighbors? More than three times a week 06/02/2022 How often do you get togethe r with friends or relatives? Once a week 06/02/2022 How often do you attend chur or baptism services? Never 06/02/2022 Do you belong to any clubs o r organizations such as restorationist groups, unions, fraternal or athletic groups, or [...] PHQ-2 Answer Date Recorded PHQ-2 Total Score 1 04/21/2024 [facility] of Occupat ional Health - Occupational Stress [...] No 06/02/2022 Physical Activity Answer Date Recorded On average, how many days pe r week do you engage in moderate to strenuous exercise (like a brisk walk)? 4 days 03/20/2024 On average, how many minutes do you exercise per day at this level? 90 min 03/20/2024 Education Answer Date Recorded What is the [...] Info) Description 06/12/2025 9:00 AM EDT Visit [facility] Women's Ambulatory Health Services [address] [place] [phone] Drea Paredes MD [address] [place], [place] [phone] 06/13/2025 2:00 PM EDT Office Visit [facility] Cardiology [address] [place] [phone] Adelso Esparza, DEVOPS ARCHITECT [address] [phone] 07/05/2025 3:00 PM EDT Consult [facility] Medical Weight Loss [place] [address] [place], [place] [phone] Sheeba Rojo PA-C [address] [address] Breonna Orozco PA-C [address] [address] documented as of this encounter Visit Diagnoses Not on filedocumented in this encounter Care Teams Director Of Cardiopulmonary Services Relationship Specialty Start Date End Date Sheridan Drew APRN [address] [place] [address] PCP - General Family Medicine 08/23/20 Jada Chicas, PhD [address] [place] [address], [address] [place] [address] Clinical Psychologist Psychology 04/01/20 Perla Lepe MD [address] [place] [address] Obstetrics and Gynecology 12/06/24 documented as of this encounter
--- OUTSIDE RECORDS SUMMARY | 2025-06-07 20:18 | XMS_ITS | Encounter Summary ---
Author Organization [facility] Address [address] [place] [address] Care Team Providers Care Truck Supervisor Name Role Phone Jada Chicas PhD Unavailable [phone] Sheridan Drew APRN Primary Care Provider [phone] Sheridan Drew APRN Unavailable [phone] Perla Lepe MD Unavailable Encounter Details Date Type Department Care Team (Late st Contact Info) Description 08/01/2021 Scanned Document [facility] EMERGENCY MED SCAN Emergency Medicine, Scan Social History Tobacco Use Types Packs/Day Years Used Date Smoking Tobacco: Never Smokeless Tobacco: Never Alcohol Use Standard Drinks/Week Comments Not Currently 0 (1 standard drink = 0.6 oz pur e alcohol) Comments No Sex and Gender Information Value Date Recorded Sex Assigned at Female 08/11/2023 1:13 PM EST Legal Sex Female 1:51 PM EST Gender Identity Female 11/06/2020 1:34 PM EST Sexual Orientation Heterosexual (straight) 11/06 1:34 PM EST COVID-19 Exposure Response Date Recorded In the last month, have you been in contact with someone who was confirmed or suspected to have Coronavirus / COVID-19? No / Unsure 07/10/2021 3:03 PM EDT documented as of this encounter Plan of Treatment Upcoming Encounters Date Type Department Care Team (Late Contact Info) Description 06/12/2025 9:00 AM EDT Visit [facility]'s Amb[facility] Health Services [address] [place] [phone] Drea Paredes MD [address] [place] [address] 06/13/2025 2:00 PM EDT Office Visit [facility] Cardiology [address] [place] [phone] Adelso Esparza APRN [address] [address] 07/05/2025 3:00 PM EDT Consult [facility] Medical Weight Loss [place] [address] [place] [phone] Sheeba Rojo PA-C [address] [address] Breonna Orozco PA-C [address] [address] documented as of this encounter Visit Diagnoses Not on filedocumented in this encounter Care Teams Truck Supervisor Relationship Specialty Start Date End Date Sheridan Drew APRN [address] [place], [place] [phone] PCP - General Family Medicine 08/23/20 Sheridan Drew APRN [address] [place] [address] PCP - [facility]+ Attributed 09/13/21 Jada Chicas, PhD [address] [place] [address], [address] [place] [address] Clinical Psychologist Psychology 04/01/20 Perla Lepe MD [address] [place] [address] Obstetrics and Gynecology 12/06/24 documented as of this encounter
--- OUTSIDE RECORDS SUMMARY | 2025-06-07 20:18 | XMS_ITS | Encounter Summary ---
Author Organization [facility]ly [facility] Address [address] [place] [address] Care Team Providers Care Farmworker Rice Name Role Phone Jada Chicas PhD Unavailable [phone] Sheridan Drew APRN Primary Care Provider [phone] Perla Lepe MD Unavailable Encounter Details Date Type Department Care Team (Late st Contact Info) Description 03/06/2024 Scanned Document [facility] URGENT CARE SCAN Urgent Care, Scan Social History Tobacco Use Types Packs/Day [...] week 06/02/2022 How often do you attend [facility] or episcopalian services? Never 06/02/2022 Do you belong to any clubs o r organizations such as yazdanism groups, unions, fraternal or athletic groups, or [...] PHQ-2 Answer Date Recorded PHQ-2 Total Score 2 03/08/2024 [facility] - Occupational Stress [...] PM EST documented as of this encounter Functional Status * Question Answer Date of Assessment Author Feeling nervous, anxious, or on edge 3 02/12 11:21 AM Aditya Hu MA Not being able to stop or co ntrol worrying 3 03/08/2024 11:21 AM Aditya Hu MA Worrying too much about diff erent things 3 03/08/2024 11:21 AM Aditya Hu MA Trouble relaxing 1 03/08/2024 11:21 AM Aditya Hu MA Being so restless that it is hard to sit still 0 03/08/2024 11:21 AM Aditya Hu MA Becoming easily annoyed or irritable 0 02/12 11:21 AM Aditya Hu MA Feeling afraid as if somethi ng awful might happen 0 03/08/2024 11:21 AM Aditya Hu MA * Over the past 2 weeks, how often have you been bothered by any of the following problems? Question Answer Date of Assessment Author Patient Health Questionnaire-2 Score 2 02/12 11:20 AM Aditya Hu MA * Question Answer Date of Assessment Author Patient Health Questionnaire-9 Score 6 02/12 11:20 AM Aditya Hu MA * Over the last 2 weeks, how often have you been bothered by any of the following problems? Question Answer Date of Assessment Author CASTRO-7 Total Score 10 03/08/2024 11:21 AM Aditya Hu MA * Question Answer Date of Assessment Author Little interest or pleasure in doing things Several days 03/08/2024 11:20 AM Aditya Hu MA Feeling down, depressed, or hopeless Several days 03/08/2024 11:20 AM Aditya Hu MA Trouble falling or staying asleep, or sleeping too much Several days 03/08/2024 11:20 AM Aditya Hu MA Feeling tired or having little energy Not at all 03/08/2024 11:20 AM Aditya Hu MA Poor appetite or overeating Several days 03/08/2024 11:20 AM Aditya Hu MA Feeling bad about yourself - or that you are a failure or have let yourself or your family down More than half the days 03/08/2024 11:20 AM Aditya Hu MA Trouble concentrating on things, such as reading the newspaper or watching television Not at all 03/08/2024 11:20 AM EDT Aditya Wade MA Moving or speaking so slowly that other people could have noticed? Or the opposite - being so fidgety or restless that you have been moving around a lot more than usual. Not at all 03/08/2024 11:20 AM Aditya Hu MA Thoughts that you would be better off or hurting yourself in some way Not at all 03/08/2024 11:20 AM SHREYAT Aditya Wade MA How difficult have these problems made it for you to do your work, take care of things at home, or get along with other people? Very difficult 03/08/2024 11:20 AM Aditya Hu MA documented as of this encounter Plan of Treatment Upcoming Encounters Date Type Department Care Team (Late st Contact Info) Description 06/12/2025 9:00 AM EDT Visit [facility] Women's Ambulatory Health Services [address] [place] [phone] Drea Paredes MD [address] [place] [address] 06/13/2025 2:00 PM EDT Office Visit [facility] Cardiology [address] [place] [phone] Adelso Esparza, JEWEL [address] [place] [address] [place] [address] 07/05/2025 3:00 PM EDT Consult [facility] Medical Weight Loss [place] [address] [place], [place] [phone] Sheeba Rojo PA-C [address] [address] Breonna Orozco PA-C [address] [place] [address] documented as of this encounter Visit Diagnoses Not on filedocumented in this encounter Care Teams Farmworker Rice Relationship Specialty Start Date End Date Sheridan Drew APRN [address] [place], [place] [phone] PCP - General Family Medicine 08/23/20 Jada Chicas, PhD [address] [place] [address] Clinical Psychologist Psychology 04/01/20 Perla Lepe MD [address] [place] [address] Obstetrics and Gynecology 12/06/24 documented as of this encounter
--- OUTSIDE RECORDS SUMMARY | 2025-06-07 20:18 | XMS_ITS | Encounter Summary ---
Author Organization [facility] Address [address] [place] [address] Care Team Providers Care Diesel Bus Mechanic Name Role Phone Jada Chicas PhD Unavailable [phone] Sheridan Drew APRN Primary Care Provider [phone] Sheridan Drew APRN Unavailable [phone] Perla Lepe MD Unavailable Encounter Details Date Type Department Care Team (Late Contact Info) Description 02/14/2021 Scanned Document [facility] Pulmonary [address] [place] [phone] Pulmonary, Scan Social History Tobacco Use Types Packs/Day Years Used Date Smoking Tobacco: Never Smokeless Tobacco: Never Alcohol Use Standard Drinks/Week Comments Yes 0 (1 standard drink = 0.6 oz pur e alcohol) Ocasionally Comments No Sex and Gender Information Value [...] have Coronavirus / COVID-19? No / Unsure 02/14/2021 2:07 PM EDT documented as of this encounter Plan of Treatment Upcoming Encounters Date Type Department Care Team (Late Contact Info) Description 06/12/2025 9:00 AM EDT Visit [facility] Women's Ambulatory Health Services [address] [place] [phone] Drea Paredes MD 111 [place], [place] [phone] 06/13/2025 2:00 PM EDT Office Visit [facility] Cardiology [address] [place] [address] [place] [phone] Adelso Esparza, JEWEL [address] [address] 07/05/2025 3:00 PM EDT Consult [facility] Medical Weight Loss [place] [address] [place] [address] Sheeba Rojo PA-C [address] [address] Breonna Orozco PA-C 2 [facility] 100 [place] [address] documented as of this encounter Visit Diagnoses Not on filedocumented in this encounter Care Teams Diesel Bus Mechanic Relationship Specialty Start Date End Date Sheridan Drew APRN [address] [place] [address] PCP - General Family Medicine 08/23/20 Sheridan Drew APRN [address] [place] [address] PCP - PCMH+ Attributed 09/13/21 Jada Chicas, PhD [address] [facility], 2nd [place] [address] Clinical Psychologist Psychology 04/01/20 Perla Lepe MD [address] [place] [address] Obstetrics and Gynecology 12/06/24 documented as of this encounter
--- OUTSIDE RECORDS SUMMARY | 2025-06-07 20:18 | XMS_ITS | Encounter Summary ---
Author Organization [facility] Address [address] [place] [address] Care Team Providers Care Technical Writer And Editor Name Role Phone Jada Chicas PhD Unavailable [phone] Sheridan Drew APRN Primary Care Provider [phone] Sheridan Drew APRN Unavailable [phone] Perla Lepe MD Unavailable Encounter Details Date Type Department Care Team ([facility] Contact Info) Description 10/07/2021 Scanned Document [facility] [address] [place] [address] Sheridan Drew APRN 256 [place] [address] Social History Tobacco Use Types Packs/Day Years [...] have Coronavirus / COVID-19? No / Unsure 09/16/2021 9:13 AM EST documented as of this encounter Plan of Treatment Upcoming Encounters Date Type Department Care Team ([facility] st Contact Info) Description 06/12/2025 9:00 AM EDT Visit [facility] Women's Ambulatory Health Services [address] [place] [phone] Drea Paredes MD 111 [place], [place] [phone] 06/13/2025 2:00 PM EDT Office Visit [facility] Cardiology [address] [place] [phone] Adeslo Esparza, JEWEL 100 [facility] [address] [place] [address] 07/05/2025 3:00 PM EDT Consult [facility] Medical Weight Loss [place] [address] [place], [place] [phone] Sheeba Rojo PA-C [address] [address] Breonna Orozco PA-C [address] [address] documented as of this encounter Visit Diagnoses Not on filedocumented in this encounter Care Teams Technical Writer And Editor Relationship Specialty Start Date End Date Sheridan Drew APRN [address] [place] [address] PCP - General Family Medicine 08/23/20 Sheridan Drew APRN [address] [place] [address] PCP - PCMH+ Attributed 09/13/21 Jdaa Chicas, PhD 200 [facility] [address] [place] [phone] Clinical Psychologist Psychology 04/01/20 Perla Lepe MD [address] [place] [phone] Obstetrics and Gynecology 12/06/24 documented as of this encounter
--- OUTSIDE RECORDS SUMMARY | 2025-06-07 20:18 | XMS_ITS | Encounter Summary ---
Author Organization [facility] Address [address] [place] [address] Care Team Providers Care Traffic Enumerator Name Role Phone Jada Chicas PhD Unavailable [phone] Sheridan Drew APRN Primary Care Provider [phone] Sheridan Drew APRN Unavailable [phone] Perla Lepe MD Unavailable Encounter Details Date Type Department Care Team (Late Contact Info) Description 02/19/2021 Scanned Document [facility] [place] Pulmonary [address] [place] [phone] Pulmonary, Scan Social History Tobacco Use [...] Info) Description 06/12/2025 9:00 AM EDT Visit [facility] Women's Ambulatory Health Services [address] [place] [phone] Drea Paredes MD 111 [place], [place] [phone] 06/13/2025 2:00 PM EDT Office Visit [facility] [place] Cardiology [address] [place] [address] [place] [phone] Adelso Esparza, JEWEL [address] [address] 07/05/2025 3:00 PM EDT Consult [facility] Medical Weight Loss [place] [address] [place] [phone] Sheeba Rojo PA-C [address] [address] Breonna Orozco PA-C 2 [facility] 100 [place] [address] documented as of this encounter Visit Diagnoses Not on filedocumented in this encounter Care Teams Traffic Enumerator Relationship Specialty Start Date End Date Sheridan Drew APRN [address] [place] [address] PCP - General Family Medicine 08/23/20 Sheridan Drew APRN [address] [place] [address] PCP - PCMH+ Attributed 09/13/21 Jada Chicas, PhD [address] [place] [facility], 2nd [place] [address] Clinical Psychologist Psychology 04/01/20 Perla Lepe MD [address] [place] [address] Obstetrics and Gynecology 12/06/24 documented as of this encounter
--- OUTSIDE RECORDS SUMMARY | 2025-06-07 20:18 | XMS_ITS | Encounter Summary ---
Author Organization [facility] Address [address] [place] [address] Care Team Providers Care Assistant Professor Surgical Technology Name Role Phone Jada Chicas PhD Unavailable [phone] Sheridan Drew APRN Primary Care Provider [phone] Sheridan Drew APRN Unavailable [phone] Perla Lepe MD Unavailable Encounter Details Date Type Department Care Team (Late st Contact Info) Description 06/24/2021 Prep for Surgery [facility] Bariatric Surgery [address] [place] [phone] Alex Cooper MD [address] [place] [address] Social History Tobacco Use Types Packs/Day Years [...] have Coronavirus / COVID-19? No / Unsure 06/25/2021 10:43 AM EDT documented as of this encounter Plan of Treatment Upcoming Encounters Date Type Department Care Team (Late st Contact Info) Description 06/12/2025 9:00 AM EDT Visit [facility] Women's Ambulatory Health Services [address] [place] [phone] Drea Paredes MD 111 [place], [place] [phone] 06/13/2025 2:00 PM EDT Office Visit [facility] Cardiology [place] [address] [place] [phone] Adelso Esparza APRN [address] [place] [phone] 07/05/2025 3:00 PM EDT Consult [facility] Medical Weight Loss [place] [address] [place] [address] Sheeba Rojo PA-C [address] [place] [address] Breonna Orozco PA-C [address] [address] documented as of this encounter Visit Diagnoses Not on filedocumented in this encounter Care Teams Assistant Professor Surgical Technology Relationship Specialty Start Date End Date Sheridan Drew APRN [address] [place] [address] PCP - General Family Medicine 08/23/20 Sheridan Drew APRN [address] [place] [address] PCP - PCMH+ Attributed 09/13/21 Jada Chicas, PhD [address] [facility], 2nd [place] [address] Clinical Psychologist Psychology 04/01/20 Perla Lepe MD [address] [place] [address] Obstetrics and Gynecology 12/06/24 documented as of this encounter
--- OUTSIDE RECORDS SUMMARY | 2025-06-07 20:18 | XMS_ITS | Encounter Summary ---
Author Organization [facility] Address [address] [place] [address] Care Team Providers Care Reed Man Name Role Phone Jada Chicas PhD Unavailable [phone] Sheridan Drew APRN Primary Care Provider [phone] Perla Lepe MD Unavailable Encounter Details Date Type Department Care Team (Late st Contact Info) Description 05/27/2023 Scanned Document [facility] URGENT CARE SCAN Urgent Care, Scan [...] week 06/02/2022 How often do you attend [facility] or islam services? Never 06/02/2022 Do you belong to any clubs o r organizations such as advent groups, unions, fraternal or athletic groups, or [...] Date Recorded PHQ-2 Total Score 0 10/16/2021 [facility] of Occupat ional [facility] - Occupational Stress Questionnaire Answer Date Recorded [...] Info) Description 06/12/2025 9:00 AM EDT Visit [facility] Women's Ambulatory Health Services [address] [place] [phone] Drea Paredes MD [address] [place] [address] 06/13/2025 2:00 PM EDT Office Visit [facility] Cardiology [place] [address] [place] [address] [place] [phone] Adelso Esparza, HIDE MILL MAN [address] [address] 07/05/2025 3:00 PM EDT Consult [facility] Medical Weight Loss [place] [address] [place] [address] Sheeba Rojo PA-C 330 [facility] 200 [place] [address] Breonna Orozco PA-C 2 [facility] 100 [place] [address] documented as of this encounter Visit Diagnoses Not on filedocumented in this encounter Care Teams Reed Man Relationship Specialty Start Date End Date Sheridan Drew APRN [address] [place] [address] PCP - General Family Medicine 08/23/20 Jada Chicas, PhD 200 [facility] 2[facility] [place] [address] Clinical Psychologist Psychology 04/01/20 Perla Lepe MD [address] [place] [address] Obstetrics and Gynecology 12/06/24 documented as of this encounter
--- OUTSIDE RECORDS SUMMARY | 2025-06-07 20:18 | XMS_ITS | Encounter Summary ---
Author Organization [facility] Address [address] [place] [address] Care Team Providers Care Hospice Admitting Clerk Name Role Phone Jada Chicas PhD Unavailable [phone] Sheridan Drew APRN Primary Care Provider [phone] Perla Lepe MD Unavailable Encounter Details Date Type Department Care Team (Late st Contact Info) Description 04/12/[address] [facility] [address] [place] [address] Sheridan Drew APRN 256 [place] [address] Social History Tobacco Use Types Packs/Day Years [...] 06/02/2022 How often do you attend chur ch or nondenominational services? Never 06/02/2022 Do you belong to any clubs o r organizations such as holiness groups, unions, fraternal or athletic groups, or [...] Date Recorded PHQ-2 Total Score 2 03/08/2024 [facility] of Occupat ional Health - Occupational Stress [...] Info) Description 06/12/2025 9:[address] [facility] Women's Ambulatory Health Services [address] [place] [phone] Drea Paredes MD [address] [place], [place] [phone] 06/13/2025 2:00 PM EDT Office Visit [facility] Cardiology [address] [phone] Adelso Esparza APRN [address] [place] [address] 07/05/2025 3:00 PM EDT Consult [facility] Medical Weight Loss [place] [address] [place], [place] [phone] Sheeba Rojo PA-C [address] [address] Breonna Orozco PA-C 2 [facility] 100 [place] [address] documented as of this encounter Visit Diagnoses Not on filedocumented in this encounter Care Teams Hospice Admitting Clerk Relationship Specialty Start Date End Date Sheridan Drew APRN [address] [place] [address] PCP - General Family Medicine 08/23/20 Jada Chicas, PhD [address] [place] [address], [address]nd [place], [place] [phone] Clinical Psychologist Psychology 04/01/20 Perla Lepe MD [address] [place] [address] Obstetrics and Gynecology 12/06/24 documented as of this encounter
--- OUTSIDE RECORDS SUMMARY | 2025-06-07 20:18 | XMS_ITS | Encounter Summary ---
Author Organization [facility] Address [address] [place] [address] Phone Care Team Providers Care Magnet Valve Assembler Name Role Phone Renay Collier MD Primary Care Provider [phone] Encounter Details Date Type Department Care Team (Late st Contact Info) Description 09/16/2011 Documentation [facility] Medicine [address] [place] [address] Family Medicine, Physician [address] [place] [place], [place] [phone] Social History Tobacco Use Types Packs/Day Years Used Date Smoking Tobacco: Never Assessed Comments Unknown Sex and Gender Information Value Date Recorded Sex Assigned at Not on file Legal Sex Female 4:37 PM EDT Gender Identity Not on file Sexual Orientation Not on file documented as of this encounter Plan of Treatment Not on file documented as of this encounter Visit Diagnoses Not on filedocumented in this encounter Care Teams Magnet Valve Assembler Relationship Specialty Start Date End Date Renay Collier MD [address] [place] [address] [place] [address] PCP - General 04/23/17 10/28/22 documented as of this encounter
--- OUTSIDE RECORDS SUMMARY | 2025-06-07 20:18 | XMS_ITS | Encounter Summary ---
Author Organization [facility] Address [address] [place] [address] Care Team Providers Care Fish Hatchery Superintendent Name Role Phone Jada Chicas PhD Unavailable [phone] Sheridan Drew APRN Primary Care Provider [phone] Perla Lepe MD Unavailable Encounter Details Date Type Department Care Team (Late st Contact Info) Description 12/26/2024 Scanned Document [facility] EMERGENCY MED SCAN Emergency Medicine, Scan [...] How often do you attend chur or pentecostal services? Never 06/02/2022 Do you belong to any clubs o r organizations such as gnosticist groups, unions, fraternal or athletic groups, or [...] Date Recorded PHQ-2 Total Score 1 04/21/2024 [facility] of Occupat ional Health - [...] you have received? 12th grade 06/02/2022 Comments Yes Sex and Gender Information Value Date Recorded [...] 9:00 AM EDT Visit [facility] Women's Amb[facility] Health Services [address] [place] [phone] Drea Paredes MD 111 [place], [place] [phone] 06/13/2025 2:00 PM EDT Office Visit [facility] Cardiology [address] [place] [phone] Adelso Esparza, CUTTING AND SPLICING SUPERVISOR [address] [phone] 07/05/2025 3:00 PM EDT Consult [facility] Medical Weight Loss [place] [address] [place], [place] [phone] Sheeba Rojo PA-C [address] [address] Breonna Orozco PA-C [address] [address] documented as of this encounter Visit Diagnoses Not on filedocumented in this encounter Care Teams Fish Hatchery Superintendent Relationship Specialty Start Date End Date Sheridan Drew APRN [address] [place] [address] PCP - General Family Medicine 08/23/20 Jada Chicas, PhD [address] [place] [address], 2[address] [place] [address] Clinical Psychologist Psychology 04/01/20 Perla Lepe MD [address] [place] [address] Obstetrics and Gynecology 12/06/24 documented as of this encounter
--- OUTSIDE RECORDS SUMMARY | 2025-06-07 20:18 | XMS_ITS | Encounter Summary ---
Author Organization [facility] Address [address] [place] [address] Care Team Providers Care Video Tape Duplicator Name Role Phone Jada Chicas PhD Unavailable [phone] Sheridan Drew APRN Primary Care Provider [phone] Perla Lepe MD Unavailable Encounter Details Date Type Department Care Team (Late st Contact Info) Description 10/11/2024 Scanned Document [facility] EMERGENCY MED SCAN Emergency Medicine, Scan [...] How often do you attend chur or anabaptism services? Never 06/02/2022 Do you belong to any clubs o r organizations such as mosque groups, unions, fraternal or athletic groups, or [...] Date Recorded PHQ-2 Total Score 1 04/21/2024 [facility] of Occupat ional Health - Occupational [...] [facility] 111 [place] [phone] Drea Paredes MD 111 [place], [place] [phone] 06/13/2025 2:00 PM EDT Office Visit [facility] Cardiology [address] [place] [phone] Adelso Esparza, ELASTIC ATTACHER CHAINSTITCH [address] [phone] 07/05/2025 3:00 PM EDT Consult [facility] Medical Weight Loss [place] [address] [place], [place] [phone] Sheeba Rojo PA-C [address] [address] Breonna Orozco PA-C [address] [address] documented as of this encounter Visit Diagnoses Not on filedocumented in this encounter Care Teams Video Tape Duplicator Relationship Specialty Start Date End Date Sheridan Drew APRN [address] [place] [address] PCP - General Family Medicine 08/23/20 Jada Chicas, PhD [address] [place] [address], 2nd [place] [address] Clinical Psychologist Psychology 04/01/20 Perla Lepe MD [address] [place] [address] Obstetrics and Gynecology 12/06/24 documented as of this encounter
--- OUTSIDE RECORDS SUMMARY | 2025-06-07 20:18 | XMS_ITS | Encounter Summary ---
Author Organization [facility] Address [address] [place] [address] Care Team Providers Care Aws Architect Name Role Phone Jada Chicas PhD Unavailable [phone] Sheridan Drew APRN Primary Care Provider [phone] Sheridan Drew APRN Unavailable [phone] Perla Lepe MD Unavailable Encounter Details Date Type Department Care Team (Late Contact Info) Description 04/04/2021 Scanned Document [facility] Pulmonary [address] [place] [phone] Pulmonary, Scan Social History Tobacco Use [...] have Coronavirus / COVID-19? No / Unsure 04/01/2021 3:50 PM EDT documented as of this encounter Plan of Treatment Upcoming Encounters Date Type Department Care Team (Late Contact Info) Description 06/12/2025 9:00 AM EDT Visit [facility] [address] [place] [phone] Drea Paredes MD [address], [place] [phone] 06/13/2025 2:00 PM EDT Office Visit [facility] Cardiology [address] [place] [phone] Adelso Esparza, JEWEL [address] [address] 07/05/2025 3:00 PM EDT Consult [facility] Weight [facility] [place] [address] [place] [phone] Sheeba Rojo PA-C [address] [address] Breonna Orozco PA-C 2 [facility] [address] [place] [address] documented as of this encounter Visit Diagnoses Not on filedocumented in this encounter Care Teams Aws Architect Relationship Specialty Start Date End Date Sheridan Drew APRN [address] [place] [id number] PCP - General Family Medicine 08/23/20 Sheridan Drew APRN [address] [place] [id number] PCP - PCMH+ Attributed 09/13/21 Jada Chicas, PhD [address] [facility], [address] [place] [address] Clinical Psychologist Psychology 04/01/20 Perla Lepe MD [address] [place] [phone] Obstetrics and Gynecology 12/06/24 documented as of this encounter
--- OUTSIDE RECORDS SUMMARY | 2025-06-07 20:18 | XMS_ITS | Clinical Summary ---
Author Organization [facility] Address [address] [place] [address] Care Team Providers Care Stock Feeder Name Role Phone Jada Chicas PhD Unavailable [phone] Sheridan Drew APRN Primary Care Provider [phone] Perla Lepe MD Unavailable Allergies Active Allergy Reactions Criticality Noted Date Comments Bupropion Other (See Comments) Medium 03/08/2024 Made symptoms worse Medications * This document contains information received from the source organization and may not represent a complete record from that organization. Blood Pressure Monitoring (Blood Pressure Monitor Automat) DeviceIndication s:Chronic hypertension affecting ,High-r isk in second trimester One automated WRIST blood pressure device and an appropriate sized cuff. To check blood pressure daily. Length of use 9 months. Dx. O10.919. Pt had extra large cuff which is not fitting her upper arm appropriately. Pt getting inconsistent/in accurate numbers with cuff on forearm. 1 each 01/16/20 25 Active SUPPLY DME MISCIndications: Morbid (severe) obesity due to excess calories (HCC) Dispense one belly band. Wear everyday when walking x 3 months Dx: Low back pain in M54.50, O26.893 1 each 02/15/20 25 Active escitalopram (LEXAPRO) 20 MG tabletIndication s:Depression with anxiety Take 1 tablet (20 mg total) by mouth daily. Dose increase 90 tablet 1 02/27/20 25 Active cholecalciferol (CHOLECALCIFEROL ) 125 MCG (5000 UT) capsuleIndicatio ns:H/O gastric sleeve,Vitamin D deficiency Take 1 capsule (5,000 Units total) by mouth daily. 60 capsule 3 03/30/20 25 Active ferrous sulfate 325 (65 FE) MG tabletIndication s:H/O gastric sleeve,Iron deficiency Take 1 tablet (325 mg total) by mouth every other day. Take 2 hours before or 4 hours after acid reducers. 30 tablet 5 03/30/20 25 Active Blood Pressure Monitoring (Blood Pressure Monitor Automat) DeviceIndication s:Severe preeclampsia, unspecified trimester 1 automatic blood pressure machine . Monitor twice daily for 6 months. Call your doctor if top number > 140 or bottom number > 90 1 each 05/04/20 25 Active NIFEdipine (ADALAT CC) 60 MG 24 hr tabletIndication s: care and examination Take 2 tablets (120 mg total) by mouth daily. 60 tablet 3 05/06/20 25 025 Active acetaminophen (TYLENOL) 500 MG tabletIndication s: care and examination Take 2 tablets (1,000 mg total) by mouth 4 times daily (every 6 hours) as needed for mild pain. 05/06/20 25 Active ibuprofen (MOTRIN) 600 MG tabletIndication s: care and examination Take 1 tablet (600 mg total) by mouth 4 times daily (every 6 hours) as needed for mild pain. 30 tablet 05/06/20 25 Active oxyCODONE (OXY-IR) 5 MG capsuleIndicatio ns: care and examination Take 1 capsule (5 mg total) by mouth 4 times daily (every 6 hours) as needed for severe pain. Max Daily Amount: 20 mg 10 capsule 05/06/20 25 Active norethindrone (MICRONOR) 0.35 MG tabletIndication s: care and examination Take 1 tablet (0.35 mg total) by mouth daily. 28 tablet 12 05/06/20 25 026 Active Additional Information Patient not taking.Reported on 05/16/2025 captopril (CAPOTEN) 25 MG tabletIndication s:Delivery by classical section Take 1 tablet (25 mg total) by mouth 3 (three) times a day before meals. 270 tablet 3 05/07/20 25 026 Active labetalol (NORMODYNE) 200 MG tabletIndication s: care and examination Take 4 tablets (800 mg total) by mouth every 8 (eight) hours around the clock. 360 tablet 05/07/20 Active vitamin with iron and folic acid ( PLUS) 27-1 MG Tab tabletIndication s:Normal in second trimester Take 1 tablet by mouth daily. 30 tablet 11 02/02/20 25 025 Discontin ued(Thera py completed ) polyethylene glycol (miraLAx) 17 g packetIndication s: care and examination Take 1 packet (17 g total) by mouth daily. 30 packet 3 05/06/20 25 025 Discontin ued(Thera py completed ) senna-docusate (SENNA-S) 8.6-50 MGIndications:Po stpartum care and examination Take 1 tablet by mouth daily. 30 tablet 3 05/06/20 25 025 Discontin ued(Thera py completed ) Active Problems Problem Noted Date Diagnosed Date Delivery by classical section Overview (05/10/2025): 05/01/25 Delivery note: While we attempted to perform a low transverse section, the hysterotomy ultimately was performed in the myometrium of the uterus near the fundus. In view of this I recommend that future deliveries are scheduled before labor and occur via section due to increased risk for uterine rupture based on the location of the hysterotomy. 05/10/25: Pt was informed by doctor in the hospital she could have a . Will clarify with surgeon and deering back to patient. Pt presents to clinic POD#9 for ANTHONY dressing removal. ANTHONY dressing removed and incision well healed, no signs of infection. I gave the pt some ABD pads she can use for barrier /protection for the next couple of weeks. Infection warning signs discussed. [facility] 05/10/25: Clarified with Dr. De La Cruz, patient will need a repeat for all future deliveries. The patient in informed her[facility] Assessment & Plan (05/10/2025 11:42 AM EDT): 05/10/25: Pt was informed by doctor in the hospital she could have a . Will clarify with surgeon and deering back to patient. Pt presents to clinic POD#9 for ANTHONY dressing removal. ANTHONY dressing removed and incision well healed, no signs of infection. I gave the pt some ABD pads she can use for barrier /protection for the next couple of weeks. Infection warning signs discussed. [facility] Severe preeclampsia, unspecified trimester 04/29 Preeclampsia, severe, third trimester 04/27/2025 Overview (05/10/2025): 05/10/25: Pre-eclamp w/severe features, d/c'd home after delivery on: Procardia XL 120mg every day, Labetalol 800mg tid, Captopril 25mg tid. Pt cmpliant with meds and BP today 144/80, 130/82. Has already met with [facility] and has another appt 05/16. [facility] Assessment & Plan (05/10/2025 11:47 AM EDT): 05/10/25: Pre-eclamp w/severe features, d/c'd home after delivery on: Procardia XL 120mg every day, Labetalol 800mg tid, Captopril 25mg tid. Pt cmpliant with meds and BP today 144/80, 130/82. Has already met with [facility] and has another appt 05/16. [facility] Alteration in blood pressure 04/26/2025 Housing instability 03/07/2025 Overview (03/07/2025): - currently undergoing eviction due to recent increase in rent. Unable to afford anymore even though she has a job - called [employer] line and is doing her research on other resources Assessment & Plan (03/07/2025 4:29 PM EDT): - currently undergoing eviction due to recent increase in rent. Unable to afford anymore even though she has a job - called [employer] [address] line and is doing her research on other housing resources - social work referral placed for assistance Thigh numbness 01/30/2025 Overview (01/30/2025): Only when in position (lying down or sitting) for > 1 hour Patient will change position frequently Abnormal genetic test during Overview (01/08/2025): No call cell free DNA 12/05/24 fraction 2.9% -reports normal cell free on [facility] (pt to send record) Tobacco use prior to start of 12/21/19 Overview (12/20/2024): pt reports she stop smoking since before finding out she was . Denies any concerns about relapsing or any withdrawal symptoms. Assessment & Plan (02/13/2025 4:10 PM EDT): Denies tobacco use Assessment & Plan (01/15/2025 12:41 PM EDT): Denies tobacco use Assessment & Plan (12/20/2024 12:31 PM EDT): Patient denies any current tobacco use. Skin rash 12/20/2024 Overview (12/20/2024): 12/20/2024 scaly, dry rash on chest, possible atopic dermatitis of like eczema. Starting with loratadine for itching, topical hydrocortisone 1% and encourage patient to use Aquaphor for hydration. Assessment & Plan (12/20/2024 12:38 PM EDT): Scaly, dry rash on chest with excoriation possible atopic dermatitis of like eczema. Starting with loratadine for itching, topical hydrocortisone 1% and encourage patient to use Aquaphor for hydration. Maternal varicella, non-immune 12/20/2024 Overview (12/20/2024): 12/20/2024 discuss precautions at next visit. Offer vaccine . KKD Assessment & Plan (03/29/2025 3:44 PM EDT): varivax Assessment & Plan (03/07/2025 4:24 PM EDT): - will offer PP vaccine Assessment & Plan (01/15/2025 1:00 PM EDT): Offer vaccine PP Assessment & Plan (12/20/2024 12:55 PM EDT): discuss precautions at next visit. Offer vaccine Vitamin B deficiency 12/13/2024 Overview (04/25/2025): Started on PNV 12/05/24. Recheck at next visit to assess need for additional supplementation 12/20/2024 B12 WNL,B1 <5 (asymptomatic). Check q trimester. [ x] 1st tri B12 WNL,B1 <5 [-] 2nd tri - not completed [x] 3rd tri - nl 03/29/2025 Assessment & Plan (03/29/2025 3:56 PM EDT): Started on PNV 12/05/24. Recheck at next visit to assess need for additional supplementation 12/20/2024 B12 WNL,B1 <5 (asymptomatic). Check q trimester. [ x] 1st tri B12 WNL,B1 <5 [-] 2nd tri - not completed [ ] 3rd tri - ordered today Assessment & Plan (03/07/2025 4:25 PM EDT): - consider repeating B12 levels with next set of labs Assessment & Plan (12/20/2024 12:16 PM EDT): B12 WNL,B1 <5 (asymptomatic) Check q trimester. Continue with vitamin supplementation. Vitamin D deficiency 12/08/2024 Overview (04/25/2025): 3/25/25 - Vit D level 21 > Started on PNV with 1000 IU Low 03/29/2025 - rx sent for additional supplementation Assessment & Plan (03/29/2025 3:58 PM EDT): 3/25/25 - Vit D level 21 > Started on PNV with 1000 IU - recheck today 03/29/2025 Assessment & Plan (03/07/2025 4:25 PM EDT): - reassess Vitamin D levels to determine adequacy of supplementation with next set of labs Assessment & Plan (12/20/2024 12:17 PM EDT): PNV with 1000 IU vit D, patient encouraged to start taking vitamin D. Plan to reassess 1-2 months. H/O gastric sleeve 12/07/2024 Overview (02/21/2025): pt reports having surgery back in 2020. Need to monitor labs- iron, folate, calcium, and vitamins B12 and D 12/07/2024 vitamin D level 21 on initial prenatals, started on PNV at that time which has 1000 IU of vit D. Recheck in 1-2 months to determine if additional supplementation needed Check nutritional labs q. Trimester. 02/13/25 vitamin D deficient, needs supplementation Assessment & Plan (03/29/2025 4:00 PM EDT): Gastric sleeve 2020 Nutrition labs q trimester Collected folate, phos, vit d, vit b12, calcium, iron today Assessment & Plan (02/13/2025 4:08 PM EDT): Vitamin D deficient, needs supplementation Vitamin D sent to pharm Assessment & Plan (01/30/2025 12:56 PM EDT): Nutrition labs collected today Assessment & Plan (01/15/2025 12:57 PM EDT): Check nutritional labs every trimesters. Will plan on collecting Calcium, Vitamin D, Iron (including ferritin), Folate (vitamin B9), Vitamin B12 with next set of labs and early glucola. Assessment & Plan (12/20/2024 12:26 PM EDT): Check nutritional labs q. trimester. Will need calcium with next blood draw. [place] Nutrients: Calcium, Vitamin D, Iron (including ferritin), Folate (vitamin B9), Vitamin B12. Consider B1, L[place] if symptoms. High-risk supervision 12/05/2024 Overview (04/25/2025): First Trimester: [X ] Routine labs [N/A] Lead testing [x] SMA/CF screen [ x ] Varicella non immune [x ] Gc/chlamydia neg 10/24/24 [x ] Pap, if indicated- NILM 06/19/2023, 10/24/24 [ - ] cell free DNA( low fraction) repeating w/ [facility] with previous OB [X] Pre-eclampsia risk assessment-162mg ASA [X ] Blood pressure cuff ordered [ ] Reviewed weight gain in [X] Covid information sheet given [X ] Accepts blood products? Yes Second Trimester: [x] Sequential screen/quad screen/msAFP [X] Anatomy ultrasound- Level II ultrasound w/ MFM 01/26 [X] Early Glucola - 137 Third Trimester: [ ] 3 hour GTT [ x] Repeat Hgb/Hct, HIV, RPR - neg 03/29/2025 [ ] GBS culture done [ ] wishes pamphlet Fourth Trimester: [ ] Diaper screen Immunizations: [ ] Flu vaccine [ ] Tdap [ ] Covid Vaccine Plans: [ ] Contraception plans [ ] Feeding plan (---) Delivery Plan: [ ] Mode of delivery [ ] Timing of delivery [ ] Delivery scheduled [ ] H&P completed Pertinent Labs: from transfer records A positive /Ab screen negative Rubella Immune HBsAg nonreactive 10/25/24 HIV neg, RPR NR (10/25/24) Hep C nonreactive 10/25/24 Varicella non-immune Negative Utox Assessment & Plan (03/29/2025 3:52 PM EDT): - 28w labs ordered today - due to elevated early 1h GTT, proceed with 3h GTT. Patient will schedule. - cfDNA insufficient fraction, reports repeated w/ previous OB provider and low risk - neg carrier screen Assessment & Plan (01/15/2025 1:00 PM EDT): AFP collected today CFDNA repeat normal, pt to fax records Will plan on visit in 2 weeks to review BP) logs and finish rest of lab work. Assessment & Plan (12/20/2024 12:54 PM EDT): Transfer of care from [facility] -First trimester labs reviewed including: CBC, T&S, Rubella IgG, RPR, HIV, HepBsAG -Pap/HPV reviewed -Will collect MSAFP at next visit -Cell free DNA result with a low fraction secondary to severe obesity. Patient planning on obtaining repeat test with [facility] which is in process with her prior [facility]. Patient plans to fax over results when she obtains them. - Referral [facility] for level II ultrasound for obesity, chronic hypertension. Scheduled for 01/26 -Medications, PMH/PSH/FamHx/Social Hx reviewed. -RTC in 3-4 weeks for routine PNV and blood work. Pertinent Labs: from transfer records A positive /Ab screen negative Rubella Immune HBsAg nonreactive 10/25/24 HIV neg, RPR NR (10/25/24) Hep C nonreactive 10/25/24 Varicella non-immune Negative Utox History of prediabetes 12/05/2024 Overview (03/29/2025): 12/05/2024 reports history of pre-diabetes although most recently hgb A1c has been in the 5s. Was started on metformin for pcos by pcp in September. Advised to stop metformin, as there is some data that metformin may increase risk for growth restriction and it has not been shown to improve most outcomes, at least in GDM, in . A1c at 9 week initial OB at [place] was 4.6 (on metformin at that time) [x] 16-18 week early glucola - 137 [ ] 3h GTT recommended, to be scheduled Assessment & Plan (03/29/2025 3:43 PM EDT): A1c at 9 week initial OB at [place] was 4.6 (on metformin at that time) [x] 16-18 week early glucola - 137 [ ] 3h GTT recommended, to be scheduled today Assessment & Plan (03/07/2025 4:20 PM EDT): - pt had early Glucola which was 137 - will repeat Glucola at 28 wks gestation Assessment & Plan (02/13/2025 4:07 PM EDT): - Early Glucola 137 > needs 3h GTT Assessment & Plan (01/30/2025 12:55 PM EDT): Early glucola today Assessment & Plan (12/20/2024 12:36 PM EDT): Patient previously on metformin daily for management prediabetes. A1c most recently 4.9. Does not routinely check fingersticks. Patient instructed to discontinue metformin at [facility]. Plan for early Glucola at 16 to 18 weeks, next OB visit. Assessment & Plan (12/05/2024 12:26 PM EDT): 12/05/2024 reports history of pre-diabetes although most recently hgb A1c has been in the 5s. Was started on metformin for pcos by pcp in September. Advised to stop metformin, as there is some data that metformin may increase risk for growth restriction and it has not been shown to improve most outcomes, at least in GDM, in . A1c at 9 week initial OB at [place] was 4.6 (on metformin at that time) [ ] 16-18 week early glucola [ ] repeat 28 week glucola if early glucose testing is normal Narrow pharyngeal airway 03/08/2024 obstructive sleep apnea 03/08/2024 Overview (05/10/2025): Has used CPAP in the past [x ] appointment with pulm 12/1112/20/2024 s/p Pulmonary consult> ordered a new machine APAP 8-20 cm H2O with D/L . Patient to receive and f/u in 3 months. 05/10/25: Contacted pul 2 days ago and working on prior authorization for CPAP machine. Pt being proactive with this[facility] Assessment & Plan (05/10/2025 11:36 AM EDT): 05/10/25: Contacted pul 2 days ago and working on prior authorization for CPAP machine. Pt being proactive with this[facility] Assessment & Plan (02/13/2025 4:10 PM EDT): Patient awaiting CPAP, message sent to pulmonology Assessment & Plan (01/30/2025 12:58 PM EDT): Still doesn't have cpap- message sent to her software publisher to assist with getting her cpap Assessment & Plan (12/20/2024 12:30 PM EDT): S/p Pulmonary consult on 12/11/24. Plan for a new machine APAP 8-20 cm H2O with D/L . Patient to receive and f/u in 3 months. Allergic rhinitis 03/08/2024 Depressive disorder 06/20/2023 Overview (12/20/2024): pt taking Lexapro for couple years daily. Medication seems to be working good, denies any worsening symptoms. Denies SI/HI. 12/20/2024 No acute issues. Taking Lexapro 20mg. Working well and tried other medications in the past that did not work well. Patient to continue with medication. Assessment & Plan (03/29/2025 4:01 PM EDT): Denies mood changes. Symptoms stable on Lexapro 20mg. Assessment & Plan (03/07/2025 4:24 PM EDT): - mood has been stable - pt continues to taken 20 mg Lexapro Assessment & Plan (12/20/2024 12:32 PM EDT): No acute issues. Taking Lexapro 20mg. Working well and tried other medications in the past that did not work well. Patient to continue with medication. Chronic hypertension affecting 021 Overview (03/07/2025): 12/05/2024 Reports history of elevated blood pressures in past but never enough to start medications Bp at 11 weeks 140-150s/80-90s -nifedipine 30 CR every day initiated 12/05/2024 -> 60 daily 12/29-> 90 daily 01/30 -blood pressure cuff sent to [facility] with instructions to measure for correct cuff size and patient instructed how to use, bp parameters [ ] next ob visit in 2 weeks to review home bps --------- For chronic HTN: [x] baseline EKG 12/19 NSR [x] baseline PEP- WNL, No P:C [X] 24 hour urine- collected 01/30 - [x] offer ASA- continue 162 mg [] GS at 32 weeks [] NSTs from 32wks if on meds Assessment & Plan (03/29/2025 3:44 PM EDT): - blood pressures have been in the normal to mild ranges at home (pt report, forgot log) - Continue Procardia 90 mg XL daily - Continue 162 mg aspirin - baseline PEP and 24 hour urine within normal limits - denies pre-eclampsia symptoms Assessment & Plan (03/07/2025 4:23 PM EDT): - blood pressures have been in the normal to mild ranges at home - pt continues to take Procardia 90 mg XL daily - continues to take 162 mg aspirin - baseline PEP and 24 hour urine within normal limits - denies pre-Eclampsia symptoms Assessment & Plan (02/13/2025 4:15 PM EDT): BP 160-170s/80s > 143/79. Patient asymptomatic Patient missed her AM dose of Procardia XL 90mg - 24 hr protein 91 (01/30) - Will sent to triage for BP monitoring, PEP labs Assessment & Plan (01/30/2025 1:00 PM EDT): Elevated BP on log- increased to nifedipine 90XL Assessment & Plan (01/15/2025 12:41 PM EDT): Currently on Nifedipine 60XR daily Discussed 24hr urine, patient to complete this week BP cuff with inaccurate reading, new cuff RX sent to pharmacy Continue ASA Level 2 scheduled with [facility] on 01/26 Assessment & Plan (12/20/2024 12:43 PM EDT): History of elevated blood pressures in the past however never officially diagnosed with chronic hypertension. Blood pressure at initial OB visit 140s to 150s. Blood pressure today WNL 136/70 however after recheck with appropriate cuff size on forearm. A blood pressure cuff sent to [facility] pharmacy for correct size, patient to collect today. No signs or symptoms for preeclampsia at this time. Patient instructed to document/record blood pressure readings at home daily and if any symptoms arise. Precautions reviewed. Plan to review blood pressure readings at next visit and submit 24-hour urine. If blood pressures are persistently greater than 140/90s, will consider uptitrating current Procardia 30 XL. For chronic HTN: [x] baseline EKG 12/19 NSR [x] baseline PEP- WNL, No P:C [p] 24 hour urine- information given 12/19/2024 [x] offer ASA- continue 162 mg [] GS at 32 weeks [] NSTs from 32wks if on meds Assessment & Plan (12/05/2024 12:26 PM EDT): Reports history of elevated blood pressures in past but never enough to start medications Bp at 11 weeks 140-150s/80-90s -nifedipine 30 CR every day initiated 12/05/2024 -blood pressure cuff sent to [facility] with instructions to measure for correct cuff size and patient instructed how to use, bp parameters [ ] next ob visit in 2 weeks to review home bps Morbid (severe) obesity due to excess calories 1 Overview (05/10/2025): Initial OB Visit: BMI 66.80. MFM Level 2 anatomy at 25w0d limited by tissue penetrance, EFW 1 lb 10oz, 34% [x] early glucola- 137 [ ] 28 wk glucola, to schedule 03/29/2025 [ ] GS q4 weeks starting 28 wks, sched 04/06/25 [ ] NSTs starting 32 weeks Anesthesia consult where appropriate 05/10/25: Pt has appt on Jul 02 with medical weight loss for consult to start GLP-[facility]. [facility] Assessment & Plan (05/10/2025 11:38 AM EDT): 05/10/25: Pt has appt on Jul 02 with medical weight loss for consult to start GLP-1. [facility] Assessment & Plan (03/29/2025 3:55 PM EDT): Initial OB Visit: BMI 66.80. MFM Level 2 anatomy at 25w0d limited by tissue penetrance, EFW 1 lb 10oz, 34% [x] early glucola- 137 [ ] 28 wk glucola, to schedule 03/29/2025 [ ] GS q4 weeks starting 28 wks, sched 04/06/25 [ ] NSTs starting 32 weeks Assessment & Plan (02/13/2025 4:10 PM EDT): 8 lb weight gain since last visit- check weight gain next visit Assessment & Plan (01/30/2025 12:58 PM EDT): Early glucola today 6 lb weight loss since last visit- check weight gain next visit Assessment & Plan (01/15/2025 12:42 PM EDT): Unable to collect early glucola today, will plan at next visit Level 2 scheduled 01/26 Assessment & Plan (12/20/2024 12:35 PM EDT): MFM referral for Level 2 anatomy- Placed [ ] early glucola- next OB visit ~16 weeks [ ] 28 wk glucola [ ] GS q4 weeks starting 28 wks [ ] NSTs starting 32 weeks Anesthesia consult where appropriate Anxiety 06/23/2021 Overview (05/10/2025): 05/10/25: Continues with Lexapro 25mg daily, symptoms well controled. [facility] Assessment & Plan (05/10/2025 11:45 AM EDT): 05/10/25: Continues with Lexapro 25mg daily, symptoms well controled. [facility] PCOS (polycystic ovarian syndrome) 08/23/2020 Resolved Problems Problem Noted Date Diagnosed Date Resolved Date Gestational hypertension, un specified trimester 03/23/2025 04/25/2025 Chronic hypertension 03/23/2025 025 Hypertension affecting 02/13/2025 03/07/2025 Impaired fasting glucose 06/23/202105/2025 Sleep apnea 02/26/2021 04/25/2025 Elevated blood pressure read ing without diagnosis of hypertension 08/23/2020 02/26/2021 Morbid obesity due to excess calories 03/29/2020 12/20/2024 Encounters Date Type Department Care Team Description 06/05/2025 Documentation [facility] [address] [place] [address] Gloria Noland RN 06/04/2025 Telephone [facility] Department of Pulmonology [address] [place] [phone] Leyla Cruz MD 2025 Telephone [facility] Department of Pulmonology [address] [place] [address] Leyla Cruz MD 05/31/2025 Travel 05/16/2025 2:15 PM EDT Telemedicine [facility] [address] [phone] Adelso Esparza APRN Chronic hypertension affecting (Primary Dx); Preeclampsia, severe, third trimester 05/16/2025 Travel 05/11/2025 Documentation [facility] [address] [place] [phone] Gloria Noland RN 05/10/2025 10:00 AM EDT Visit [facility] [address] [place] [phone] Drea Paredes MD Visit for wound check (Primary Dx); obstructive sleep apnea; Morbid (severe) obesity due to excess calories (HCC); Delivery by classical section; Anxiety; Preeclampsia, severe, third trimester 05/08/2025 2:00 PM EDT Telemedicine [facility] [address] [phone] Adelso Esparza APRN Preeclampsia, severe, third trimester (Primary Dx); Chronic hypertension affecting 05/08/2025 Travel 04/30/2025 10:36 PM EDT Anesthesia Event [facility] Labor [facility] Delivery [address] [place] [address] Jose Beavers DO Harned, Ryan, MD 04/30/2025 11:00 AM EDT Office Visit [facility] Maternal Medicine [address] [place] [phone] Jada Beck MD Hill, Jennifer M, MD Pre-eclampsia in third trimester (Primary Dx); Poor growth affecting management of mother in third trimester, single or unspecified fetus; Obesity affecting in third trimester, unspecified obesity type 04/29/2025 11:45 AM EDT - 05/07/2025 2:34 PM EDT Hospital Encounter [facility] [place] [address] [place] [address] Kajal Lester MD Flaum, Sheila Dara, DO Bingham, Jemel M, MD Deckers, Elizabeth A, MD Hartnett, Janice M, MD Mills Kubi, Emily Jo, MD Preeclampsia, severe, third trimester (Primary Dx); Severe preeclampsia, unspecified trimester; Preeclampsia, severe; care and examination; Delivery by classical section Discharge Disposition: Home or Self Care 04/29/2025 Travel 04/27/[address] [phone] Monica De La Cruz MD 04/26/2025 5:00 PM EDT - 04/27/2025 11:43 PM EDT Hospital Encounter [facility] Labor and Delivery [address] [place] [address] Yeison Rios MD Johnson, Amy M, MD Brooks, Erin, MD Alteration in blood pressure (Primary Dx) Discharge Disposition: Left Against Medical Advice/ AMA 04/26/2025 3:20 PM EDT Routine [address] [phone] Drea Paredes MD Hurley, Lindsey, MD GA: [id number] 04/26/2025 Travel 04/25/2025 Telephone [facility] [address] [place] [phone] Drea Paredes MD Other 04/23/2025 Scanned Document [facility] [address] [place] [phone] Gris García MD 04/23/2025 [facility] [address] [place] [phone] Kajal Lester MD Vitamin D deficiency 04/23/2025 [facility] [address] [place] [phone] Obdulia Santoyo, DO Normal in second trimester 04/18/2025 Telephone [facility] [address] [place] [phone] Zeenat Ma MA 04/17/2025 Scanned Document [facility] [address] [place] [phone] Drea Paredes MD 04/13/2025 [facility] [address] [place] [phone] Lety Rice RN 04/11/2025 [facility] [address] [place] [phone] Kajal Lester MD Vitamin D deficiency 04/11/2025 [facility] [address] [place] [phone] Obdulia Santoyo, DO Normal in second trimester 04/11/2025 Scanned Document [facility] [address] [place] [address] Sheridan Drew APRN 04/06/2025 3:00 PM EDT Office Visit [facility] Maternal Medicine [place] [address] [place] [phone] Kenia Ramírez MD Nold, Nitin Oakley MD Pre-existing hypertension during in third trimester, unspecified pre-existing hypertension type (Primary Dx); Obesity in ; H/O gastric sleeve 04/06/2025 Travel 04/05/2025 Scanned Document [address] [phone] Sheridan Drew, JEWEL 03/29/2025 3:20 PM EDT Routine [facility] [address] [place] [phone] Drea Paredes MD Whelan Fitch, Karley, MD GA: [id number] 03/29/2025 Travel 03/29/[address] [phone] Drea Paredes MD 03/23/2025 8:55 PM EDT - 03/23/2025 11:55 PM EDT Hospital Encounter [facility] Labor and Delivery [address] [place] [address] Gris García MD Chronic hypertension (Primary Dx) Discharge Disposition: Home or Self Care 03/23/2025 8:43 PM EDT - 03/23/2025 8:53 PM EDT Emergency [facility] Emergency Department [address] [place] [address] Discharge Disposition: Home or Self Care 03/22/2025 Telephone [facility] [address] [place] [phone] Odilia Colin, WILLY 03/21/2025 Scanned Document [address] [phone] Sheridan Drew, JEWEL 03/15/2025 Telephone [facility] [address] [place] [phone] Jeanette Lorenzana RN 03/13/2025 Telephone [facility] [address] [place] [phone] Michael Perez MA 03/12/2025 Telephone [facility] [address] [place] [phone] Charline Aguilar LMSW 03/09/2025 8:00 AM EDT Office Visit [facility] Maternal Medicine [place] [address] [place] [address] Nitin Moreno MD Hart, Jada Holloway MD Pre-existing hypertension during in second trimester, unspecified pre-existing hypertension type (Primary Dx); Obesity in 03/09/2025 Travel 03/07/2025 2:15 PM EDT Telemedicine [facility] [address] [place] [phone] Obdulia Santoyo DO Lindsay, Sarah F, MD Jallow, Haddijatou, MD High-risk in second trimester (Primary Dx); Chronic hypertension affecting ; H/O gastric bypass; Morbid (severe) obesity due to excess calories (HCC); History of prediabetes; Vitamin D deficiency; Depressive disorder ; Maternal varicella, non-immune; Vitamin B deficiency; Housing instability from Last 3 Months Immunizations Immunization Administration Dates Next Due Covid-19 MRNA Vaccine - Pfizer 12+ (Purple Cap) 01/09/2021,12/19/2020 Covid-19 mRNA Primary Series Vaccine - Moderna 0.5 mL Full Dose 07/14/2021 Covid-19 mRNA Vaccine - Moderna 0.25 mL Booster 07/14/2021 Influenza Inactivated/Split Preservative Free IM 08/23/2020 Varicella 05/05/2025 Family History Medical History Relation Name Comments Diabetes Father Joel Chahal Hypertension Father Joel Chahal Obesity Father Joel Chahal Sleep apnea Father Joel Chahal Obesity Mother Jenny chahal Sleep apnea Mother Jenny chahal Diabetes Paternal Grandmother Shari Rodrigues Hypertension Paternal Grandmother Shari Rodrigues Stroke Paternal Grandmother Shari Rodrigues Anxiety disorder Sister Jessie Arena Asthma Sister Jessie Chahal Obesity Sister Jessie Kerhonkson Relation Name Status Comments Father Joel Chahal Mother Jenny chahal Paternal Grandmother Shari Rodrigues Sister Jessie Chahal Social History Tobacco Use Types Packs/Day Years Used Date Smoking Tobacco: Never Smokeless Tobacco: Never Alcohol Use Standard Drinks/Week Comments Not Currently 0 (1 standard drink = 0.6 oz pur e alcohol) [facility] Utilities Answer Date Recorded In the past 12 months has th e electric, gas, oil, or water company threatened to shut off services in your home? No 04/29/2025 Social Connection and Isolation Panel [NHANES] A nswer Date Recorded In a typical week, how many times do you talk on the phone with family, friends, or neighbors? Three times a week 02/26/2025 Frequency of Social Gatherin gs with Friends and Family Not on file 02/26/2025 Attends [employer] Services Not on file 02/26 Active Member [...] Date Recorded PHQ-2 Total Score 0 02/26/2025 [facility] [...] things needed for daily living? No 04/29/2025 [place] Depression Scale Answer Date Recorded [place] Depression Scale Total 0 05/02/2025 The thought [...] any time in the past 12 m [facility], were you homeless or living in a fci (including now)? No 04/29/2025 Physical Activity Answer [...] Orientation Heterosexual (straight) 11/06 1:34 PM EST Last Filed Vital Signs Vital Sign Reading Time Taken Comments Blood Pressure 136/84 05/16/2025 2:19 PM EDT Pulse 78 05/10/2025 10:40 AM EDT Temperature 35.9 C (96.7 F) 05/10/2025 10:34 AM EDT Respiratory Rate 18 05/07/2025 12:08 PM EDT Oxygen Saturation 98% 05/10/2025 10:34 AM EDT Inhaled Oxygen Concentration - - Weight 161 kg (354 lb) 05/16/2025 2:19 PM EDT Height 157.5 cm (5' 2 ) 05/16/2025 2:19 PM EDT Body Mass Index 64.75 05/16/2025 2:19 PM EDT Plan of Treatment Upcoming Encounters Date Type Department Care Team (Late st Contact Info) Description 06/12/2025 9:00 AM EDT Visit [facility] [address] [place] [phone] Drea Paredes MD [address] [place], [place] [phone] 06/13/2025 2:00 PM EDT Office Visit [facility] [address] [place] [phone] Adelso Esparza APRN [address] [place] [address] 07/05/2025 3:00 PM EDT Consult [facility] [place] [address] [place] [address] Sheeba Rojo PA-C [address] [address] Breonna Orozco PA-C 2 [facility] [address] [place] [address] Health Maintenance Due Date Last Done Comments Hepatitis C Virus Screening 2000 DTaP/Tdap/Td Vaccines (1 - Tdap) 2017 Hepatitis B Vaccines (1 of 3 - 19+ 3-dose series) 2017 Physical 10/16/2024 10/16/2021, 06/13, 08/23/2020 Influenza Vaccine 04/13/2025 08/23/2020, (Previously Completed) COVID-19 Vaccine ( season) 2025 07/14/2021, 07/14/2021, 01/09/2021, Additional history exists Pap Smear (Ages 21-65) 06/19/2026 , 05/30/2019 (Previously Completed) Lipid Panel Discontinued 03/25/2024, 03/0 09/2021, 12/26/2020, Additional history exists HIV Screening Completed 03/29/2025 Hemoglobin A1C Discontinued 04/27/2025, 03/13, 11/11/2021, Additional history exists HPV Vaccines (No Doses Required) Completed Pneumococcal Vaccine: Pediatric (0-5 Years) and At-Risk Patients (6 to 49 Years) Aged Out No longer eligible based on patient's age to complete this topic Procedures Procedure Name Priority Date/Time Associated Diagnosis Comments ECG 12-LEAD Routine 05/02/2025 4:13 PM EDT POCT GLUCOSE, FINGERSTICK (CHARGE) Routine 05/02/2025 5:55 AM EDT COMPREHENSIVE METABOLIC PANEL Routine 05/02/2025 12:00 AM EDT COMPLETE BLOOD COUNT, WITHOUT DIFFERENTIAL Routine 05/02/2025 12:00 AM EDT PATHOLOGY REPORT Routine 05/01/2025 7:07 PM EDT POCT GLUCOSE, FINGERSTICK (CHARGE) Routine 05/01/2025 4:47 PM EDT POCT GLUCOSE, FINGERSTICK (CHARGE) Routine 05/01/2025 1:14 PM EDT COMPREHENSIVE METABOLIC PANEL Routine 05/01/2025 12:00 PM EDT COMPLETE BLOOD COUNT, WITHOUT DIFFERENTIAL Routine 05/01/2025 12:00 PM EDT PREPARE RBC'S Routine 05/01/2025 10:05 AM EDT POCT GLUCOSE, FINGERSTICK (CHARGE) Routine 05/01/2025 9:25 AM EDT GROUP B STREP CULTURE, GENITAL Routine 05/01/2025 7:00 AM EDT COMPREHENSIVE METABOLIC PANEL Routine 05/01/2025 5:41 AM EDT COMPLETE BLOOD COUNT, WITHOUT DIFFERENTIAL Routine 05/01/2025 5:41 AM EDT POCT GLUCOSE, FINGERSTICK (CHARGE) Routine 05/01/2025 4:53 AM EDT POCT GLUCOSE, FINGERSTICK (CHARGE) Routine 05/01/2025 12:41 AM EDT ANES BLOCK - EPIDURAL Routine 05/01/2025 12:29 AM EDT POCT GLUCOSE, FINGERSTICK (CHARGE) Routine 04/30/2025 7:36 PM EDT COMPREHENSIVE METABOLIC PANEL Routine 04/30/2025 6:30 PM EDT COMPLETE BLOOD COUNT, WITHOUT DIFFERENTIAL Routine 04/30/2025 6:30 PM EDT POCT GLUCOSE, FINGERSTICK (CHARGE) Routine 04/30/2025 2:31 PM EDT POCT GLUCOSE, FINGERSTICK (CHARGE) Routine 04/30/2025 7:59 AM EDT COMPREHENSIVE METABOLIC PANEL Routine 04/30/2025 5:13 AM EDT COMPLETE BLOOD COUNT, WITHOUT DIFFERENTIAL Routine 04/30/2025 5:13 AM EDT POCT GLUCOSE, FINGERSTICK (CHARGE) Routine 04/30/2025 3:21 AM EDT COMPREHENSIVE METABOLIC PANEL Routine 04/30/2025 12:00 AM EDT COMPLETE BLOOD COUNT, WITHOUT DIFFERENTIAL Routine 04/30/2025 12:00 AM EDT POCT GLUCOSE, FINGERSTICK (CHARGE) Routine 04/29/2025 11:07 PM EDT POCT GLUCOSE, FINGERSTICK (CHARGE) Routine 04/29/2025 7:25 PM EDT POCT GLUCOSE, FINGERSTICK (CHARGE) Routine 04/29/2025 3:29 PM EDT TYPE AND SCREEN Routine 04/29/2025 12:31 PM EDT LACTATE DEHYDROGENASE (LDH) Routine 04/29/2025 12:31 PM EDT URIC ACID Routine 04/29/2025 12:31 PM EDT COMPREHENSIVE METABOLIC PANEL Routine 04/29/2025 12:31 PM EDT COMPLETE BLOOD COUNT, WITHOUT DIFFERENTIAL Routine 04/29/2025 12:31 PM EDT SYPHILIS ANTIBODIES REFLEX TO RPR TITER (L&D ONLY) Routine 04/29/2025 12:28 PM EDT POCT GLUCOSE, FINGERSTICK (CHARGE) Routine 04/27/2025 8:58 PM EDT POCT GLUCOSE, FINGERSTICK (CHARGE) Routine 04/27/2025 8:56 PM EDT (REPORT) TOTAL VOLUME, 24 HOUR URINE [id number] Routine 04/27/2025 7:00 PM EDT PROTEIN, URINE, 24 HOUR Routine 04/27/2025 7:00 PM EDT POCT GLUCOSE, FINGERSTICK (CHARGE) Routine 04/27/2025 5:10 PM EDT POCT GLUCOSE, FINGERSTICK (CHARGE) Routine 04/27/2025 12:29 PM EDT COMPREHENSIVE METABOLIC PANEL Routine 04/27/2025 8:43 AM EDT COMPLETE BLOOD COUNT, WITHOUT DIFFERENTIAL Routine 04/27/2025 8:43 AM EDT HEMOGLOBIN A1C WITH ESTIMATED AVERAGE GLUCOSE Routine 04/27/2025 8:43 AM EDT POCT GLUCOSE, FINGERSTICK (CHARGE) Routine 04/27/2025 8:24 AM EDT POCT GLUCOSE, FINGERSTICK (CHARGE) Routine 04/27/2025 3:56 AM EDT POCT GLUCOSE, FINGERSTICK (CHARGE) Routine 04/27/2025 12:05 AM EDT ABO CONFIRMATION Routine 04/26/2025 8:56 PM EDT POCT GLUCOSE, FINGERSTICK (CHARGE) Routine 04/26/2025 8:11 PM EDT ECG 12-LEAD Routine 04/26/2025 6:50 PM EDT TYPE AND SCREEN Routine 04/26/2025 6:22 PM EDT COMPREHENSIVE METABOLIC PANEL Routine 04/26/2025 6:07 PM EDT COMPLETE BLOOD COUNT, WITH DIFFERENTIAL Routine 04/26/2025 6:07 PM EDT SYPHILIS ANTIBODIES REFLEX TO RPR TITER (L&D ONLY) Routine 04/26/2025 6:07 PM EDT POCT URINALYSIS DIPSTICK (IN-HOUSE) (CHARGE) Routine 04/26/2025 3:36 PM EDT Third trimester IRON AND TOTAL IRON BINDING CAPACITY Routine 03/29/2025 3:54 PM EDT CALCIUM, TOTAL Routine 03/29/2025 3:54 PM EDT VITAMIN B1, PLASMA/SERUM Routine 03/29/2025 3:54 PM EDT H/O gastric sleeve VITAMIN B12 Routine 03/29/2025 3:54 PM EDT H/O gastric sleeve VITAMIN D, 25-HYDROXY Routine 03/29/2025 3:54 PM EDT H/O gastric sleeve PHOSPHORUS Routine 03/29/2025 3:54 PM EDT H/O gastric sleeve FOLATE LEVEL Routine 03/29/2025 3:54 PM EDT H/O gastric sleeve SYPHILIS ANTIBODY WITH REFLEX TO RPR TITER Routine 03/29/2025 3:48 PM EDT Supervision of high risk , antepartum HIV 1/2 AG/AB CMIA REFLEX TO CONFIRMATION Routine 03/29/2025 3:48 PM EDT Supervision of high risk , antepartum COMPLETE BLOOD COUNT, WITH DIFFERENTIAL Routine 03/29/2025 3:48 PM EDT Supervision of high risk , antepartum POCT URINALYSIS DIPSTICK (IN-HOUSE) (CHARGE) Routine 03/29/2025 3:20 PM EDT PROTEIN/CREATININE RATIO PANEL, URINE Routine 03/23/2025 10:01 PM EDT COMPREHENSIVE METABOLIC PANEL Routine 03/23/2025 9:04 PM EDT COMPLETE BLOOD COUNT, WITHOUT DIFFERENTIAL Routine 03/23/2025 9:04 PM EDT LIPID PANEL REFLEX DIRECT LDL Routine 03/25/2024 10:16 AM EDT General medical exam PCOS (polycystic ovarian syndrome) Morbid (severe) obesity due to excess calories (HCC) THINPREP PAP TEST ([employer]AL [employer]AUFFEUR) WITH HPV REFLEX, GC/CT Routine 06/19/2023 1:40 PM EDT from Last 3 Months or Most Recently Relevant to Health Maintenance Results * ECG 12 lead (05/02/2025 4:13 PM EDT) Only the most recent of2 resultswithin the time period is included. [facility] Ventricular rate 80 BPM EKG [facility] Atrial rate 80 BPM EKG [facility] P-R interval 150 ms EKG [facility] QRS duration 74 ms [facility] Q-T interval 392 ms [facility] QTC calculation (Bazett) 453 ms [facility] P axis 47 degrees [facility] R axis 28 degrees [facility] T axis 34 degrees [facility] 05/02/2025 4:13 PM EDT Narrative EKG [facility] - 05/02/2025 7:43 PM EDT Normal sinus rhythm Normal ECG When compared with ECG of 26-Apr-2025 18:50, Nonspecific T wave abnormality no longer evident in Inferior leads Nonspecific T wave abnormality no longer evident in Anterolateral leads Confirmed by Harsha Sewell MD ([id number]) on 05/02/2025 7:43:35 PM Procedure Note Harsha Sewell MD - 05/02/2025 Normal sinus rhythm Normal ECG When compared with ECG of 26-Apr-2025 18:50, Nonspecific T wave abnormality no longer evident in Inferior leads Nonspecific T wave abnormality no longer evident in Anterolateral leads Confirmed by Harsha Sewell MD ([id number]) on 05/02/2025 7:43:35 PM us Drea Paredes MD ECG ORDERABLES Final Resul [facility] * POCT Glucose, Fingerstick (05/02/2025 5:55 AM EDT) Only the most recent of21 resultswithin the time period is included. POC Glucose 83 65 - 99 mg/dL 05/02/2025 5:56 AM EDT Blood specimen / Unknown 05/02/2025 5:55 AM EDT 05/02/2025 5:56 AM EDT us Rosa Elena Avelar MD POINT OF CARE TEST ORDERA BLES Final Result HOSPITAL LAB See Below * (ABNORMAL) COMPLETE BLOOD COUNT, WITHOUT DIFFERENTIAL (05/02/2025 12:00 AM EDT) Only the most recent of9 resultswithin the time period is included. White Blood Cell Count 15.6(H) 4.0 - 11.0 Thou/uL 05/02/2025 12:47 AM [facility] Platelet Count 290 150 - 450 Thou/uL 05/02/2025 12:47 AM [facility] Hemoglobin 10.9(L) 11.7 - 15.7 g/dL 05/02/2025 12:47 AM [facility] Hematocrit 34.0(L) 35.0 - 47.0 % 05/02/2025 12:47 AM [facility] Red Blood Cell Count 3.98(L) 4.00 - 5.40 Mil/uL 05/02/2025 12:47 AM [facility] MCV 85 80 - 100 fL 05/02/2025 12:47 AM [facility] MCH 27.4 26.0 - 34.0 pg 05/02/2025 12:47 AM [facility] MCHC 32.1 30.0 - 36.0 g/dL 05/02/2025 12:47 AM [facility] RDW 13.2 11.5 - 14.5 % 05/02/2025 12:47 AM [facility] MPV 10.4 7.5 - 12.5 fL 05/02/2025 12:47 AM [facility] Blood Blood specimen / Unknown 05/02/2025 05/02/2025 12:32 AM EDT us Obdulia Santoyo DO LAB BLOOD ORDERABLES Final Result [facility] [address] [place] [address], [facility] [address] [place] [address] * (ABNORMAL) Comprehensive Metabolic Panel (05/02/2025 12:00 AM EDT) Only the most recent of10 resultswithin the time period is included. Glucose 102(H) 65 - 99 mg/dL 05/02/2025 1:05 AM [facility] Comment:Fasting: <100 mg/dL, Non-Fasting: <200 mg/dL (ADA 2004) Blood Urea Nitrogen (BUN) 9 8 - 21 mg/dL 05/02/2025 1:05 AM [facility] Creatinine 0.7 0.4 - 1.1 mg/dL 05/02/2025 1:05 AM [facility] eGFR >90 >59 05/02/2025 1:05 AM [facility] Comment:CKD-EPI (2020) in mL /min/1.73 sq meters. Sodium 133(L) 136 - 145 mmol/L 05/02/2025 1:05 AM [facility] Potassium 4.8 3.4 - 5.3 mmol/L 05/02/2025 1:05 AM [facility] Chloride 103 98 - 107 mmol/L 05/02/2025 1:05 AM [facility] CO2 20(L) 22 - 33 mmol/L 05/02/2025 1:05 AM [facility] Calcium 7.4(L) 8.7 - 10.5 mg/dL 05/02/2025 1:05 AM [facility] Alkaline Phosphatase 105 32 - 122 U/L 05/02/2025 1:05 AM [facility] Aspartate Aminotrans (AST) 33 10 - 50 U/L 05/02/2025 1:05 AM [facility] Alanine Aminotrans (ALT) 31 10 - 50 U/L 05/02/2025 1:05 AM [facility] Bilirubin, Total 0.2 0.2 - 1.0 mg/dL 05/02/2025 1:05 AM [facility] Protein, Total 5.8(L) 6.3 - 8.3 g/dL 05/02/2025 1:05 AM EDT [facility] Albumin 3.1(L) 3.5 - 5.0 g/dL 05/02/2025 1:05 AM T [facility] BUN/Creatinine Ratio 13 10.0 - 25.0 Ratio 05/02/2025 1:05 AM EDT [facility] Globulin 2.7 1.5 - 3.9 g/dL 05/02/2025 1:05 AM EDT [facility] Albumin/Globulin Ratio 1.1 1.0 - 3.0 Ratio 05/02/2025 1:05 AM T [facility] Anion Gap 10 7 - 17 05/02/2025 1:05 AM [facility] Blood Blood specimen / Unknown 05/02/2025 05/02/2025 12:32 AM EDT Obdulia Santoyo LAB BLOOD [place] [address], [place] [address] * Pathology (05/01/2025 7:07 PM EDT) Report [facility] [id number] CLIA ID [id number] [address] [place] [address] [phone] Surgical Pathology Report PATIENT NAME: ABELARDO CHAHAL [facility] REC NUMBER: [id number] (AGE): 2000 (Age: 24) SPECIMEN NUMBER: [id number] DATE OBTAINED: 05/01/2025 DIAGNOSIS PLACENTA (CLINICALLY AT 32 4/7 WEEKS GESTATION): SMALL THIRD TRIMESTER PLACENTA WITH UNREMARKABLE TRIVASCULAR UMBILICAL CORD, 273 GRAMS (EXPECTED WEIGHT FOR 32-33 WEEKS GESTATION: 290-464 GRAMS). UNREMARKABLE MEMBRANES. MATURE VILLI WITH BENIGN CHORIONIC CYST. FOCAL ACUTE ATHEROSIS OF MATERNAL ARTERIES. NO ACUTE CHORIOAMNIONITIS OR VILLITIS. nc/05/10/2025 Electronically Signed Out AFSANEH GODOY MD COMMENT [id number] Clinical Information and History: PRE-ECLAMPSIA WITH SEVERE FEATURES, 32 WEEK DELIVERY Tissue(s) Submitted: A: PLACENTA Gross Description: The specimen is received fresh labeled placenta and is subsequently placed in formalin at 0745 on 05/02/2025. The specimen is processed 05/04/2025. 1) Weight after trimming membranes and umbilical cord: 275 g. 2) Measurements: The specimen is that of an ovoid to irregular butler placenta, which measures 19.0 x 16.0 x 2.2 cm. 3) surface: The surface is blue-purple, smooth and glistening with normal vascular arborization. The surface is remarkable for a single possible subchorionic cyst (0.8 x 0.5 cm), which is located at the periphery (coming within 4.0 cm of the nearest disc edge) and comprises less than 5% of the surface. 4) Maternal surface: The maternal surface is red-brown with poorly formed cotyledons and appears to be complete. The maternal surface is disrupted over approximately 40% of the surface, but appears to be complete. 5) Cut surface: The cut surface is predominantly red-purple, spongy and homogeneous; the cut surface is remarkable for a single area of interest (1.0 x 0.8 x 0.5 cm), which is irregular, holt-yellow and indurated. This area is located at the periphery (coming within 2.0 cm of the nearest disc edge), and comprises less than 5% of the cut surface. 6) Membranes: The membranes are holt-pink to pink-whelan, smooth, glistening and semitranslucent. The membranes insert 100% marginally. Point of rupture is located marginally. 7) Cord: a) Length: 17.0 cm b) Diameter: Ranging from 1.7 to 2.1 cm. c) Insertion: Eccentric, coming within 4.0 cm of the nearest disc edge. d) External surface: Holt-white, smooth and glistening with normal left hand coiling (2 coils per 10 cm); no true or false knots are grossly identified. e) Cut surface (# of vessels): 3; the cut surface is focally markedly congested. 8) Loose blood clot: Minimal. Summary of sections: A1: Distal cord and membrane rolls A2: Proximal cord and surface, to include in store representative possible subchorionic cyst A3: Central maternal surface A4: Senior Field Engineer area of interest within cut surface (SNC) [place] [facility] 05/01/2025 7:07 PM EDT 05/02/2025 7:16 AM EDT Comment:PLACENTA us Monica De La Cruz MD PATHOLOGY/CYTOLOGY ORDERA BLES Final Result Performing Organization Address City/[facility]/ZIP Co de Phone Number HOSPITAL LAB See Below * Prepare RBC's:Prepare in: Units; Number of Units: 2; Transfusion Indications: Hemoglobin less than 7 gm/dl or HCT less than 21% (05/01/2025 10:05 AM EDT) Units Ordered 2 05/01/2025 10:05 AM EDT 05/01/2025 10:0 5 AM EDT 05/01/2025 10:11 AM EDT us Monica De La Cruz MD BLOOD BANK PRODUCT ORDERA BLES Final Result Performing Organization Address [facility] Co de Phone Number HOSPITAL LAB See Below * (ABNORMAL) Group B Strep Culture, Genital (05/01/2025 7:00 AM EDT) Culture Positive for Group B Streptococcus If patient is and is penicillin allergic please contact laboratory for susceptibility testing. (A) 05/03/2025 11:37 AM EDT [facility] Swab, Genital Pooled specimen from vaginal introitus and rectal swab / Unknown 05/01/2025 7:00 AM EDT 05/01/2025 9:14 AM EDT Comment:Swab, Genital us Monica De La Cruz MD MICROBIOLOGY - GENERAL OR DERABLES Final Result Performing Organization Address [facility] Co de Phone Number [facility] [address] [place] [address], * ANES BLOCK - EPIDURAL (05/01/2025 12:29 AM EDT) Narrative Jose Beavers DO - 05/01/2025 12:29 AM EDT Jose Beavers DO 05/02/2025 2:20 PM Anesthesia Procedure Note - Epidural Block Patient Name: Abelardo Chahal : 2000 Patient location: OB Reason for block: procedure for pain Procedure diagnosis: Pain during labor Performed by: Resident/BIODIESEL PRODUCTION TECHNICIAN MD Mahad Gaston MD Chart Verification ID band applied and present Patient ID verified via arm band, verbally with patient. H&P verified: Yes Pre-op test results in chart Consents confirmed: informed and anesthesia Nursing assessment complete: yes Diagnostic and/or radiology results displayed correctly: not applicable Anesthesia questionnaire complete: yes Antibiotic ordered: not applicable Blood products needed: no Procedure Verification/TIMEOUT Correct procedure: yes Correct patient position: yes Correct laterality: not applicable Correct site: yes Site/side marked: not applicable Sterility reviewed: yes Special equipment or implants: not applicable Safety precautions discussed with procedural staff: yes Preanesthetic Checklist monitors and equipment checked. Patient's pre-procedure mental status: awake The patient was not sedated prior to procedure. Procedure Preparation Skin prep: 2% chlorhexidine - completely dried prior to procedure Hand hygeine performed prior to needle/catheter insertion Sterile barriers in place: cap, gloves, large sterile sheet and mask Procedure Details The patient was placed placed in sitting position. The patient was monitored using Frequent blood pressure checks and continuous pulse oximetry. After positioning, the back was palpated and the L3-4 space was identified. The skin was prepped and sterile drapes were applied. The skin was infiltrated with Lidocaine 1%. Epidural - A 5 in, 18 g, Tuohy needle was inserted using a midline approach and HERBER saline technique; HERBER 12 cm. A multi-orifice, 20 g catheter was placed via the needle and secured. A lidocaine 1.5% w/epinephrine 1:200,000 test dose was used and was negative. Catheter length at skin depth: 17 cm. Number of attempts: 2 Post-procedure Verification Counts correct: not applicable Specimens labeled correctly: not applicable Equipment problems to be addressed: not applicable Recovery issues: no Post-procedure Assessment Sensory level: T10 (Bilateral) Adverse events: No [facility] Events Josethanh Contedavidson VASQUEZ ID ANESTHESIA Final Result * Type and Screen (04/29/2025 12:31 PM EDT) Only the most recent of2 resultswithin the time period is included. ABO/Rh A POSITIVE 04/29/2025 3:29 PM EDT [facility] Antibody Screen NEGATIVE 04/29/2025 3:29 PM EDT [facility] Specimen Expiration 05/02/2025 04/29/2025 3:29 PM EDT [facility] Unit Number [id number] 05/01/2025 10:13 AM EDT [facility] Blood Component Type LEUKOREDUCED RED CELLS 05/01/2025 10:13 AM EDT [facility] Unit Division 00 05/01/2025 10:13 AM EDT [facility] Unit Status REL FROM ALLOC 9:55 PM EDT [facility] Transfusion Status OK TO TRANSFUSE 05/01/2025 10:13 AM EDT [facility] Crossmatch Result Electronically Compatible 05/01/2025 10:13 AM EDT [facility] Unit Number [id number] 05/01/2025 10:13 AM EDT [facility] Blood Component Type LEUKOREDUCED RED CELLS 05/01/2025 10:13 AM EDT [facility] Unit Division 00 05/01/2025 10:13 AM EDT [facility] Unit Status REL FROM ALLOC 9:55 PM EDT [facility] Transfusion Status OK TO TRANSFUSE 05/01/2025 10:13 AM EDT [facility] Crossmatch Result Electronically Compatible 05/01/2025 10:13 AM [facility] Blood Blood specimen / Unknown 04/29/2025 12:31 PM EDT 04/29/2025 1:59 PM EDT Comment:Blood us Rosa Elena Avelar MD BLOOD BANK TEST ORDERABLE S Final Result HOSPITAL LAB See Below [address] [address] * Uric Acid (04/29/2025 12:31 PM EDT) Uric Acid 5.9 2.5 - 7.0 mg/dL 04/29/2025 1:59 PM EDT [facility] Blood Blood specimen / Unknown 04/29/2025 12:31 PM EDT 04/29/2025 1:38 PM EDT Rosa Elena Avelar MD LAB BLOOD ORDERABLES Imani l Result Performing Organization Address [facility]/[place] [address], [address] [address] * Lactate Dehydrogenase (LDH) (04/29/2025 12:31 PM EDT) Lactate Dehydrogenase (LDH) 213 120 - 260 U/L 04/29/2025 1:59 PM EDT [facility] Comment:Specimen hemolyzed. Results may be artifactually elevated. Blood Blood specimen / Unknown 04/29/2025 12:31 PM EDT 04/29/2025 1:38 PM EDT Rosa Elena Avelar MD LAB BLOOD ORDERABLES Imani l Result Performing Organization Address [facility] [place] [address], [address] [address] * L&D only, Syphilis Antibodies, reflex to RPR Titer (04/29/2025 12:28 PM EDT) Only the most recent of2 resultswithin the time period is included. Syphilis Antibody Reflex RPR Titer and TPA Nonreactive Nonreactive 04/30/2025 1:12 PM EDT [facility] Blood Blood specimen / Unknown 04/29/2025 12:28 PM EDT 04/29/2025 1:38 PM EDT Rosa Elena Avelar MD LAB BLOOD ORDERABLES Imani l Result [facility] [address] [place] [address], * Total Volume, 24 Hour Urine (04/27/2025 7:00 PM EDT) Total Volume 3,000 mLs 04/27/2025 10:40 PM EDT [facility] Period 24 hr 04/27/2025 10:40 PM EDT [facility] Urine specimen / Unknown 04/27/2025 7:00 PM EDT 04/27/2025 10:40 PM EDT us Kajal Lester MD URINE ORDERABLES Final Result Performing Organization Address [facility]/[place] [address], [place] [address] * (ABNORMAL) Protein, Urine, 24 Hour (04/27/2025 7:00 PM EDT) Protein, Urine 330(H) 28 - 141 mg/24 Hr 04/27/2025 11:14 PM EDT [facility] Urine Urine specimen / Unknown 04/27/2025 7:00 PM EDT 04/27/2025 10:40 PM EDT us Kajal Lester MD URINE ORDERABLES Final Result Performing Organization Address [facility] [place] [address], [place] [address] * (ABNORMAL) Hemoglobin A1c with Estimated Average Glucose (04/27/2025 8:43 AM EDT) Hemoglobin A1C 5.9(H) <5.7 % 04/27/2025 1:16 PM EDT [facility] Comment: A1c% Interpretation 5.7 - 6.0 Increase risk of diabetes 6.1 - 6.4 Higher risk of diabetes > or = 6.5 Consistent with diabetes Diabetes Care, 33(Supp 1):S1-S61, 2009 Estimated Average Glucose 123 mg/dL 04/27/2025 1:16 PM EDT [facility] Blood Blood specimen / Unknown 04/27/2025 8:43 AM EDT 04/27/2025 10:41 AM EDT us Kajal Lester MD LAB BLOOD ORDERABLES Final Resu lt Performing Organization Address [facility]/[place] [address], [place] [address] * ABO Confirmation (04/26/2025 8:56 PM EDT) Pathologist [facility] ABO/Rh A POSITIVE 04/26/2025 9:36 PM EDT [facility] Blood Blood specimen / Unknown 04/26/2025 8:56 PM EDT 04/26/2025 9:10 PM EDT us Kajal Lester MD BLOOD BANK TEST ORDERABLES Imani l Result Performing Organization Address [facility] [place] [address], [place] [address] * (ABNORMAL) Complete Blood Count, with Differential (04/26/2025 6:07 PM EDT) Only the most recent of2 resultswithin the time period is included. [facility] White Blood Cell Count 11.1(H) 4.0 - 11.0 Thou/uL 04/26/2025 6:47 PM EDT [facility] Platelet Count 332 150 - 450 Thou/uL 04/26/2025 6:47 PM EDT [facility] Hemoglobin 12.1 11.7 - 15.7 g/dL 04/26/2025 6:47 PM EDT [facility] Hematocrit 35.5 35.0 - 47.0 % 04/26/2025 6:47 PM EDT [facility] Red Blood Cell Count 4.27 4.00 - 5.40 Mil/uL 04/26/2025 6:47 PM T [facility] MCV 83 80 - 100 fL 04/26/2025 6:47 PM EDT [facility] MCH 28.3 26.0 - 34.0 pg 04/26/2025 6:47 PM EDT [facility] MCHC 34.1 30.0 - 36.0 g/dL 04/26/2025 6:47 PM EDT [facility] RDW 13.0 11.5 - 14.5 % 04/26/2025 6:47 PM EDT [facility] MPV 10.3 7.5 - 12.5 fL 04/26/2025 6:47 PM EDT [facility] Neutrophils Auto 80.6 % 04/26/20 6:47 PM EDT [facility] Immature Granulocytes 0.3 % 04/26/2025 6:47 PM EDT [facility] Lymphocytes Auto 14.4 % 04/26/20 6:47 PM EDT [facility] Monocytes Auto 4.1 % 04/26/2025 6:47 PM EDT [facility] Eosinophils Auto 0.3 % 04/26/20 6:47 PM EDT [facility] Basophils Auto 0.3 % 04/26/2025 6:47 PM EDT [facility] Abs Neutrophils Auto 8.95(H) 2.00 - 7.50 Thou/uL 04/26/2025 6:47 PM EDT [facility] Abs Immature Granulocytes 0.03 0.00 - 0.10 Thou/uL 04/26/2025 6:47 PM EDT [facility] Abs Lymphocytes Auto 1.59 1.50 - 4.50 Thou/uL 04/26/2025 6:47 PM EDT [facility] Abs Monocytes Auto 0.45 0.20 - 1.50 Thou/uL 04/26/2025 6:47 PM EDT [facility] Abs Eosinophils Auto 0.03 0.00 - 0.70 Thou/uL 04/26/2025 6:47 PM EDT [facility] Abs Basophils Auto 0.03 0.00 - 0.20 Thou/uL 04/26/2025 6:47 PM EDT [facility] Blood Blood specimen / Unknown 04/26/2025 6:07 PM EDT 04/26/2025 6:33 PM EDT us Kajal Lester MD LAB BLOOD ORDERABLES Final Resu lt [address] [address], [address] [address] * (ABNORMAL) POCT Urinalysis Dipstick (04/26/2025 3:36 PM EDT) Only the most recent of2 resultswithin the time period is included. Color, UA Yellow 04/26/2025 3:39 PM EDT Clarity, UA Clear 04/26/2025 3:39 PM EDT Spec Grav, UA 1.025 1.003 - 1.030 04/26/2025 3:39 PM EDT pH, UA 6.0 5.0 - 8.0 04/26/2025 3:39 PM EDT Leukocyte Esterase, UA Negative Negative WBC/hpf 04/26/2025 3:39 PM EDT Nitrite, UA Negative Negative mg/dL 04/26/2025 3:39 PM EDT Protein, UA 30(A) NEG^Negative mg/dL 04/26/2025 3:39 PM EDT Glucose, UA Negative Negative mg/dL 04/26/2025 3:39 PM EDT Ketones, UA Negative Negative mg/dL 04/26/2025 3:39 PM EDT Urobilinogen, UA 0.2 0.2 - 1.0 mg/dL 04/26/2025 3:39 PM EDT Bilirubin, UA Negative Negative mg/dL 04/26/2025 3:39 PM EDT Blood, UA Negative Negative Nash/uL 04/26/2025 3:39 PM EDT Urine specimen / Unknown 04/26/2025 3:36 PM EDT 04/26/2025 3:39 PM EDT Sheridan Drew STRATEGIC SOLUTIONS CONSULTANT POINT OF CARE TEST ORDERABL ES Final Result [facility]PITAL LAB See Below * (ABNORMAL) Iron and Total Iron Binding Capacity (03/29/2025 3:54 PM EDT) Pathologist [facility] Iron 50(L) 59 - 151 ug/dL 03/29/2025 8:35 PM EDT [facility] UIBC 379(H) 112 - 346 ug/dL 03/29/2025 8:35 PM EDT [facility] Total Iron Binding Capacity 429(H) 100 - 400 ug/dL 03/29/2025 8:35 PM EDT [facility] Iron Sat 12(L) 20 - 50 % 03/29/2025 8:35 PM EDT [facility] 03/29/2025 3:54 PM EDT 03/29/2025 7:54 PM EDT [facility] LAB BLOOD ORDERABLES Final Res ult Performing Organization Address [facility] [place] [address], [place] [address] * (ABNORMAL) Vitamin D, 25-Hydroxy (03/29/2025 3:54 PM EDT) Vitamin D, 25-Hydroxy 28(L) 30 - 100 ng/mL 03/29/2025 8:51 PM EDT [facility] Blood Blood specimen / Unknown 03/29/2025 3:54 PM EDT 03/29/2025 7:53 PM EDT [facility] LAB BLOOD ORDERABLES Final Res ult Performing Organization Address [facility] [place] [address], [place] [address] * Vitamin B1, Plasma/Serum (03/29/2025 3:54 PM EDT) Vitamin B1, Plasma 11 8 - 30 nmol/L 04/04/2025 2:56 PM EDT [facility] Comment: (NOTE) Vitamin supplementation within 24 hours prior to blood draw may affect the accuracy of the results. This test was developed and its analytical performance characteristics have been determined by [facility] [place], [place]. It has not been cleared or approved by the U.S. Food and Drug Administration. This assay has been validated pursuant to the CLIA regulations and is used for clinical purposes. Blood Blood specimen / Unknown 03/29/2025 3:54 PM EDT 03/29/2025 7:54 PM EDT us Rose Layne DO LAB BLOOD ORDERABLES Final Res ult [facility] [address] [facility] [address] [address] [place], [place] , [place] [facility] [place] [address] [facility] [address] [address] [place], [place] * Phosphorus (03/29/2025 3:54 PM EDT) Phosphorus 4.0 2.7 - 4.5 mg/dL 03/29/2025 8:35 PM EDT [facility] Blood Blood specimen / Unknown 03/29/2025 3:54 PM EDT 03/29/2025 7:54 PM EDT us Rose Loza DO LAB BLOOD [place]AB[place] [address], [place] [address] * Folate Level (03/29/2025 3:54 PM EDT) Folate, Serum 19.4 >7.2 ng/mL 03/29/2025 8:51 PM EDT [facility] Blood Blood specimen / Unknown 03/29/2025 3:54 PM EDT 03/29/2025 7:53 PM EDT us Rose Loza DO LAB BLOOD [place] [address], [address] [address] * Vitamin B12 (03/29/2025 3:54 PM EDT) Vitamin B12 458 243 - 894 pg/mL 03/29/2025 8:35 PM EDT [facility] Blood Blood specimen / Unknown 03/29/2025 3:54 PM EDT 03/29/2025 7:54 PM EDT us Rose Tillman DO LAB BLOOD ORDERABLES Final Res ult [address] [address], [address] [address] * Calcium, Total (03/29/2025 3:54 PM EDT) Calcium 8.9 8.7 - 10.5 mg/dL 03/29/2025 8:35 PM EDT [facility] 03/29/2025 3:54 PM EDT 03/29/2025 7:54 PM EDT us Rose Tillman DO LAB BLOOD ORDERABLES Final Res ult Performing Organization Address [facility]/ZIP Co de Phone Number [address] [address], [address] [address] * Syphilis Antibodies, reflex to RPR Titer (03/29/2025 3:48 PM EDT) Syphilis Antibody Reflex RPR Titer and TPA Nonreactive Nonreactive 03/30/2025 10:24 AM EDT [facility] Blood Blood specimen / Unknown 03/29/2025 3:48 PM EDT 03/29/2025 7:57 PM EDT us Rose Tillman DO LAB BLOOD ORDERABLES Final Res ult [facility] [address] [place] [address], * HIV 1/2 Ag/Ab CMIA Reflex to Confirmation (03/29/2025 3:48 PM EDT) HIV 1/2 Ag/Ab CMIA Nonreactive Nonreactive 03/30/2025 10:24 AM EDT [facility] Comment: Results show no evidence of infection by HIV 1/2. If clinically indicated, repeat CMIA or test by nucleic acid amplification. HIV 1/2 Antigen/Antibody CMIA reflex to confirmation AND HIV-1 RNA viral load recommended in patients who are taking or have recently taken PrEP. Blood Blood specimen / Unknown 03/29/2025 3:48 PM EDT 03/29/2025 7:57 PM EDT us Rose Tillman DO LAB BLOOD ORDERABLES Final Res ult [facility] [address] [place] [address], * Protein/Creatinine Ratio Panel, Urine (03/23/2025 10:01 PM EDT) Protein Urine, Random 11 mg/dL 03/23/2025 11:00 PM EDT [facility] Comment:Reference range not established for random specimen. Creatinine, Urine, Random 128 mg/dL 03/23/2025 11:00 PM EDT [facility] Comment:Reference range not established for random specimen. Protein/Creatini ne Ratio, Urine <0.10 03/23/2025 11:00 PM EDT [facility] Urine Urine specimen / Unknown 03/23/2025 10:01 PM EDT 03/23/2025 10:31 PM EDT Julissa Medina MD URINE ORDERABLES Final Result Performing Organization Address [facility]/ZIP Co de Phone Number [address] [address], [address] [address] * (ABNORMAL) Lipid Panel Reflex Direct LDL (03/25/2024 10:16 AM EDT) Cholesterol, Total 207(H) <200 mg/dL [facility] Cholesterol, HDL 54 > OR = 50 mg/dL [facility] [employer] Triglycerides 147 <150 mg/dL [facility] LDL Cholesterol 127(H) mg/dL (calc) [facility] Comment: Reference range: <100 Desirable range <100 mg/dL for primary prevention; <70 mg/dL for patients with CHD or diabetic patients with > or = 2 CHD risk factors. LDL-C is now calculated using the Bolivar calculation, which is a validated novel method providing better accuracy than the Friedewald equation in the estimation of LDL-C. Darren LARIOS et al. ADELE. 2013;310(88): 1121-5943 (http://education.Gravie/faq/AIR264) Cholesterol/HDL Ratio 3.8 <5.0 (calc) [facility] Non HDL Chol. (LDL+VLDL) 153(H) <130 mg/dL (calc) [facility] Comment: For patients with diabetes plus 1 major ASCVD risk factor, treating to a non-HDL-C goal of <100 mg/dL (LDL-C of <70 mg/dL) is considered a therapeutic option. Blood 03/25/2024 10:1 6 AM EDT 03/25/2024 10:17 AM EDT Narrative [facility] - 03/26/2024 6:56 AM EDT FASTING:YES FASTING: YES Sheridan Drew APRN LAB BLOOD ORDERABLES Final Result [address] [place] [address] * ThinPrep Pap Test (Launch Operator) with HPV Reflex, GC/CT (06/19/2023 1:40 PM EDT) Clinical Information [facility] Comment:Routine exam LMP: [facility] Comment:05/22/2023 Previous PAP: [facility] Comment:NONE GIVEN Previous Biopsy [facility] Comment:NONE GIVEN Source: [facility] [place] Comment:Cervix, Endocervix Statement of Adequacy: [facility] Comment: Satisfactory for evaluation. Endocervical/transformation zone component present. Interpretation/Res ult: [facility] Comment: Cytology Results: Negative for intraepithelial lesion or malignancy. Comment: [facility] [place] Comment: This Pap test has been evaluated with computer assisted technology. Auto Travel Counselor: RIGOBERTO GIBBONS Comment: LASHAWN MONTES DE OCA(ASCP) CT screening location: [place] [address] Slide preparation performed at: [facility], [address] [place] [address] CLIA No. [id number] Comment BEATRICE Array[employer]Maria Esther GIBBONS Comment: EXPLANATORY NOTE: The Pap is a screening test for cervical cancer. It is not a diagnostic test and is subject to false negative and false positive results. It is most reliable when a satisfactory sample, regularly obtained, is submitted with relevant clinical findings and history, and when the Pap result is evaluated along with historic and current clinical information. Chlamydia Trachomatis RNA, TMA NOT DETECTED NOT DETECTED [facility] Neisseria Gonorrhoeae RNA, TMA NOT DETECTED NOT DETECTED [facility] Chlamydia Trachomatis RNA, TMA Comment [facility] Comment: The analytical performance characteristics of this assay, when used to test SurePath(TM) specimens have been determined by [facility]. The modifications have not been cleared or approved by the FDA. This assay has been validated pursuant to the CLIA regulations and is used for clinical purposes. For additional information, please refer to https://education.Tiny Prints/faq/FNB944 (This link is being provided for information/ educational purposes only.) Your request to have a duplicate copy faxed has been acknowledged. Queued to: [id number] 06/19/2023 1:40 PM EDT 06/22/2023 2:07 AM EDT Narrative [facility] - 06/24/2023 9:26 AM EDT [id number] RTN; CC: SHARI PABLO DO, FAX Arminda Hernandez CNM LAB AMB PATH/CYTO ORDERABLES Final Result [facility] [address], [place] [address] [place] [address], from Last 3 Months or Most Recently Relevant to Health Maintenance Insurance [facility] Advance Directives * Full Code (Latest Code Status on File) Date Activated Date Inactivated Comments 05/01/2025 8:17 PM * Full Code Date Activated Date Inactivated Comments 04/29/2025 12:31 PM 05/01/2025 8:17 PM * Full Code Date Activated Date Inactivated Comments 04/26/2025 6:08 PM 04/29/2025 11:46 AM * Full Code Date Activated Date Inactivated Comments 03/23/2025 9:04 PM 04/26/2025 5:00 PM * Full Code Date Activated Date Inactivated Comments 02/13/2025 6:19 PM 03/23/2025 8:44 PM Care Teams Stock Feeder Relationship Specialty Start Date End Date Sheridan Drew APRN [address] [place], [place] [id number] PCP - General Family Medicine 08/23/20 Jada Chicas, PhD [address] [facility] [address] [place], [place] [id number] Clinical Psychologist Psychology 04/01/20 Perla Lepe MD [address] [place] [address] Obstetrics and Gynecology 12/06/24
--- OUTSIDE RECORDS SUMMARY | 2025-06-07 20:18 | XMS_ITS | Clinical Summary ---
Author Organization [facility] Address [address] [place] [address] Phone Care Team Providers Care Mercerizer Machine Operator Name Role Phone Unavailable Primary Care Provider Unavailabl e Immunizations Immunization Administration Dates Next Due DTP 1998,1998,1998 DTaP 5 05/21/2003,02/13/2000 H1N1 07/11/2009 HPV, Quadrivalent 01/24/2010,09/26/2009,07/11/20 09 Hep B, ped/adol 1998,1998,1998 Hib (PRP-T) 10/02/1999, 9,1998, 998 IPV 05/21/2003,1998,1998 Influenza Split 09/15/2011,09/08/2010 Influenza, injectable, trivalent 09/26/2009,06/14,07/11/2007 MMR 2002,06/05/1999 Meningococcal Conj (Menactra) MCV4P 07/11/2009 OPV 06/05/1999 Tdap 07/11/2009 Varicella 07/11/2008,10/02/1999 Family History Relation Name Status Comments Brother Alive Brother: Alive and well Father Alive Father: Alive a nd well Mother Alive Mother: Alive a nd well Sister Alive Sister: Asthma Social History Tobacco Use Types Packs/Day Years Used Date Smoking Tobacco: Never Assessed Comments Unknown Sex and Gender Information Value Date Recorded Sex Assigned at Not on file Legal Sex Female 4:37 PM EDT Gender Identity Not on file Sexual Orientation Not on file Last Filed Vital Signs Vital Sign Reading Time Taken Comments Blood Pressure - - Pulse - - Temperature 37 C (98.6 F) 07/06/2011 12:00 AM EDT Respiratory Rate - - Oxygen Saturation - - Inhaled Oxygen Concentration - - Weight 130 kg (285 lb 8 oz) 09/15/2011 12:00 AM EST Height 157.5 cm (5' 2 ) 09/15/2011 12:00 AM EST Body Mass Index 52.22 09/15/2011 12:00 AM EST Plan of Treatment Health Maintenance Due Date Last Done Comments DTaP,Tdap,and Td Vaccines (7 - Td or Tdap) 07/11/2019 07/11/2009, 05/21/2003, 02/13/2000, Additional history exists Influenza Vaccines (#1) 2025 09/15/19, 09/08/2010, 09/26/2009, Additional history exists COVID-19 Vaccine ( season) 2025 Hepatitis B Vaccines Completed 1998, 1998, 1998 HIB Vaccines Completed 10/02/1999, 11/12, 1998, Additional history exists MMR Vaccines Completed 2002, 06/05/1999 IPV Vaccines Completed 05/21/2003, 05/15, 1998, Additional history exists Varicella Vaccines Completed 07/11/2008, 10/02/1999 Meningococcal Vaccine Aged Out 07/11/2009 No dutch oscar eligible based on patient's age to complete this topic HPV Vaccines Completed 01/24/2010, 09/13, 07/11/2009 Hepatitis A Vaccines Aged Out No long er eligible based on patient's age to complete this topic Men B Vaccine Aged Out No longer elig ible based on patient's age to complete this topic Pneumococcal Vaccine Aged Out No long er eligible based on patient's age to complete this topic
--- OUTSIDE RECORDS SUMMARY | 2025-06-07 20:18 | XMS_ITS | Encounter Summary ---
Author Organization [facility] Address [address] [place] [address] Care Team Providers Care Hob Mill Operator Name Role Phone Rose Shah APRN Primary Care Provider + Jada Chicas PhD Unavailable [phone] Sheridan Drew APRN Primary Care Provider [phone] Sheridan Drew APRN Unavailable [phone] Perla Lepe MD Unavailable Encounter Details Date Type Department Care Team (Late st Contact Info) Description 01/30/2020 Scanned Document [facility] Bariatric Surgery [address] [place] [address] Nafisa Bojorquez MD [address] [facility] [address] [place] [address] Social History Tobacco Use Types Packs/Day Years Used Date Smoking Tobacco: Never Smokeless Tobacco: Never Alcohol Use Standard Drinks/Week Comments Yes 0 (1 standard drink = 0.6 oz pur e alcohol) ocassionally Comments No Sex and Gender Information Value [...] have Coronavirus / COVID-19? No / Unsure 01/24/2020 1:56 PM EDT documented as of this encounter Plan of Treatment Upcoming Encounters Date Type Department Care Team (Late st Contact Info) Description 06/12/2025 9:00 AM EDT Visit [facility] Women's Ambulatory Health Services [address] [place] [phone] Drea Paredes MD [address] [place], [place] [phone] 06/13/2025 2:00 PM EDT Office Visit [facility] Cardiology [address] [place] [phone] Adelso Esparza APRN [address] [place] [address] 07/05/2025 3:00 PM EDT Consult [facility] Medical Weight Loss [place] [address] [place] [address] Sheeba Rojo PA-C [address] [address] Breonna Orozco PA-C 2 [facility] [address] [place] [address] documented as of this encounter Visit Diagnoses Not on filedocumented in this encounter Care Teams Hob Mill Operator Relationship Specialty Start Date End Date Rose Shah APRN PCP - General Family Medicine 08/25/19 08/22/20 Sheridan Drew APRN [address] [place] [address] PCP - General Family Medicine 08/23/20 Sheridan Drew APRN [address] [place] [address] PCP - PCMH+ Attributed 09/13/21 Jada Chicas, PhD [address] [place] [address], [address]nd [place], [place] [phone] Clinical Psychologist Psychology 04/01/20 Perla Lepe MD [address] [place] [address] Obstetrics and Gynecology 12/06/24 documented as of this encounter
--- OUTSIDE RECORDS SUMMARY | 2025-06-07 20:18 | XMS_ITS | Encounter Summary ---
Author Organization [facility] Address [address] [place] [address] Care Team Providers Care Accountant Name Role Phone Jada Chicas PhD Unavailable [phone] Sheridan Drew APRN Primary Care Provider [phone] Perla Lepe MD Unavailable Encounter Details Date Type Department Care Team (Late st Contact Info) Description 01/09/2025 Scanned Document [facility] EMERGENCY MED SCAN Emergency Medicine, Scan [...] How often do you attend chur or congregation services? Never 06/02/2022 Do you belong to any clubs o r organizations such as voodoo groups, unions, fraternal or athletic groups, or [...] Date Recorded PHQ-2 Total Score 1 04/21/2024 [facility] Occupat ional Health - [...] Medical Center Women's Ambulatory Health Services [address] [place] [phone] Drea Paredes MD [address] [place], [place] [phone] 06/13/2025 2:00 PM EDT Office Visit [facility] Cardiology [address] [place] [phone] Adelso Esparza, PIG MACHINE OPERATOR HELPER [address] [phone] 07/05/2025 3:00 PM EDT Consult [facility] Medical Weight Loss [place] [address] [place], [place] [phone] Sheeba Rojo PA-C [address] [address] Breonna Orozco PA-C [address] [address] documented as of this encounter Visit Diagnoses Not on filedocumented in this encounter Care Teams Accountant Relationship Specialty Start Date End Date Sheridan Drew APRN [address] [place] [address] PCP - General Family Medicine 08/23/20 Jada Chicas, PhD [address] [place] [address], 2[address] [place] [address] Clinical Psychologist Psychology 04/01/20 Perla Lepe MD [address] [place] [address] Obstetrics and Gynecology 12/06/24 documented as of this encounter
--- OUTSIDE RECORDS SUMMARY | 2025-06-07 20:18 | XMS_ITS | Encounter Summary ---
Author Organization [facility] Address [address] [place] [address] Phone Care Team Providers Care Automatic Trimming Sewer Name Role Phone Renay Collier MD Primary Care Provider Encounter Details Date Type Department Care Team (Late st Contact Info) Description 04/29/2017 Conversion Encounter Line [facility] [address] [place] [address] Social History Tobacco Use Types Packs/Day Years [...] on filedocumented in this encounter Care Teams Automatic Trimming Sewer Relationship Specialty Start Date End Date Renay Collier MD [address] [place] [address] PCP - General 04/23/17 10/28/22 documented as of this encounter
--- OUTSIDE RECORDS SUMMARY | 2025-06-07 20:19 | XMS_ITS | Encounter Summary ---
Author Organization [facility] Address [address] [place] [address] Care Team Providers Care Career Guidance Technician Name Role Phone Jada Chicas PhD Unavailable [phone] Sheridan Drew APRN Primary Care Provider [phone] Perla Lepe MD Unavailable Encounter Details Date Type Department Care Team (Late st Contact Info) Description 04/11/2025 Scanned Document [facility] [address] [place] [address] Sheridan Drew APRN [address] [place] [address] Social History Tobacco Use Types Packs/Day Years Used Date Smoking Tobacco: Never Smokeless Tobacco: Never Alcohol Use Standard Drinks/Week Comments Yes 0 (1 standard drink = 0.6 oz pur e alcohol) [facility] Utilities Answer Date Recorded In the past 12 months has [employer], gas, oil, or water [employer] threatened to shut off services in your home? No 02/26/2025 Social Connection and Isolation Panel [NHANES] A nswer Date Recorded In a typical week, how many times do you talk on the phone with family, friends, or neighbors? Three times a week 02/26/2025 Frequency of Social Gatherin gs with Friends and Family Not on file 02/26/2025 Attends Quaker Services Not on file 02/26 Active Member of Clubs or Organizations Not on f ile 02/26/2025 Attends Club or Organization Meetings Not on jacob e 02/26/2025 Marital Status Not on file 02/26/2025 AUDIT-C Answer Date Recorded Q1: How often do you have a drink containing alcohol? Never 02/26/2025 Q2: How many drinks containi ng alcohol do you have on a typical day when you are drinking? Patient does not drink Q3: How often do you have si x or more drinks on one occasion? Never 02/26/2025 Overall Financial Resource Strain (CARDIA) Answe r Date Recorded How hard is it for you to pa y for the very basics like food, housing, medical care, and heating? Somewhat hard 06/02/2022 PHQ-2 Answer Date Recorded PHQ-2 Total Score 0 02/26/2025 [facility] of Occupat ional Health - Occupational Stress [...] the money to buy more. Never true 02/27/20 25 Within the past 12 months, t he food you bought just didn't last and you didn't have money to get more. Never true 02/26/2025 PRAPARE - Transportation Answer Date Re corded In the past 12 months, has l ack of transportation kept you from medical appointments or from getting medications? No 02/11 In the past 12 months, has l ack of transportation kept you from meetings, work, or from getting things needed for daily living? No 02/26/2025 Housing Stability Vital Sign Answer Mack e Recorded In the last 12 months, was t here a time when you were not able to pay the mortgage or rent on time? No 02/26/2025 In the past 12 months, how m any times have you moved where you were living? 0 02/26/2025 At any time in the past [address] [facility], were you homeless or living in a intermediate (including now)? No 02/26/2025 Physical Activity Answer Date Recorded On average, [...] received? Some college, no degree 02/26/2025 Comments Yes Sex and Gender Information Value Date Recorded Sex Assigned at Female 08/11/2023 1:13 PM EST Legal Sex Female 1:51 PM EST Gender Identity Female 11/06/2020 1:34 PM EST Sexual Orientation Heterosexual (straight) 11/06 1:34 PM EST documented as of this encounter Plan of Treatment Upcoming Encounters Date Type Department Care Team (Late st Contact Info) Description 06/12/2025 9:00 AM EDT Visit [facility] Women's Ambulatory Health Services [address] [place] [phone] Drea Paredes MD [address] [place] [address] 06/13/2025 2:00 PM EDT Office Visit [facility] Cardiology [address] [place] [phone] Adelso Esparza APRN [address] [place] [address] [place] [address] 07/05/2025 3:00 PM EDT Consult [facility] Medical Weight Loss [place] [address] [place], [place] [phone] Sheeba Rojo PA-C [address] [place] [address] Breonna Orozco PA-C [address] [address] documented as of this encounter Visit Diagnoses Not on filedocumented in this encounter Care Teams Career Guidance Technician Relationship Specialty Start Date End Date Sheridan Drew APRN [address] [place] [address] PCP - General Family Medicine 08/23/20 Jada Chicas, PhD [address] [place] [address], [address] [place] [address] Clinical Psychologist Psychology 04/01/20 Perla Lepe MD [address] [place] [address] Obstetrics and Gynecology 12/06/24 documented as of this encounter
--- OUTSIDE RECORDS SUMMARY | 2025-06-07 20:19 | XMS_ITS | Encounter Summary ---
Author Organization [facility] Address [address] [place] [address] Phone Care Team Providers Care Dog Pound Attendant Name Role Phone Renay Collier MD Primary Care Provider [phone] Encounter Details Date Type Department Care Team (Late st Contact Info) Description 04/23/2011 Documentation [facility] Family Medicine [address] [place] [address] Family Medicine, Physician [address] [place] [phone] Social History Tobacco Use Types Packs/Day Years [...] on filedocumented in this encounter Care Teams Dog Pound Attendant Relationship Specialty Start Date End Date Renay Collier MD [address] [place] [address] [place] [address] PCP - General 04/23/17 10/28/22 documented as of this encounter
--- OUTSIDE RECORDS SUMMARY | 2025-06-07 20:19 | XMS_ITS | Encounter Summary ---
Author Organization [facility] Address [address] [place] [address] Phone Care Team Providers Care Insole Lip Turner Name Role Phone Renay Collier MD Primary Care Provider [phone] Encounter Details Date Type Department Care Team (Late st Contact Info) Description 04/23/2011 Documentation [facility] Family Medicine [address] [place] [address] Family Medicine, Physician [address] [place], [place] [phone] Social History Tobacco Use Types Packs/Day Years [...] on filedocumented in this encounter Care Teams Insole Lip Turner Relationship Specialty Start Date End Date Renay Collier MD [address] [place] [address] [place] [address] PCP - General 04/23/17 10/28/22 documented as of this encounter
--- OUTSIDE RECORDS SUMMARY | 2025-06-07 20:19 | XMS_ITS | Encounter Summary ---
Author Organization [facility] Address [address] [place] [address] Care Team Providers Care Earth Auger Operator Name Role Phone Jada Chicas PhD Unavailable [phone] Sheridan Drew APRN Primary Care Provider [phone] Perla Lepe MD Unavailable Reason for Visit * Reason Onset Date Comments Medication Refill 04/11/2025 Encounter Details Date Type Department Care Team (Late st Contact Info) Description 04/11/2025 [address]ill [facility] Women's Ambulatory Health Services [address] [place] [phone] Obdulia Santoyo DO [address] [place], [place] [phone] Normal in second trimester Social History Tobacco Use Types Packs/Day Years Used Date Smoking Tobacco: Never Smokeless Tobacco: Never Alcohol Use Standard Drinks/Week Comments Yes 0 (1 standard drink = 0.6 oz pur e alcohol) [facility] Utilities Answer Date Recorded In the past 12 months has [employer], gas, oil, or water company threatened to shut off services in your home? No 02/26/2025 Social Connection and Isolation Panel [NHANES] A nswer Date Recorded In a typical week, how many times do you talk on the phone with family, friends, or neighbors? Three times a week 02/26/2025 Frequency of Social Gatherin gs with Friends and Family Not on file 02/26/2025 Attends Hinduism Services Not on file 02/26 Active Member [...] Date Recorded PHQ-2 Total Score 0 02/26/2025 [facility] of Occupat ional Health - Occupational [...] any time in the past 12 m [place], were you homeless or living in a senior living (including now)? No 02/26/2025 Physical Activity Answer [...] Info) Description 06/12/2025 9:00 AM EDT Visit [facility] Women's Ambulatory Health Services [address] [place] [phone] Drea Paredes MD [address] [place] [address] 06/13/2025 2:00 PM EDT Office Visit [facility] Cardiology [address] [place] [phone] Adelso Esparza, JEWEL [address] [place] [address] [place] [address] 07/05/2025 3:00 PM EDT Consult [facility] Medical Weight Loss [place] [address] [place] [address] Sheeba Rojo PA-C [address] [address] Breonna Orozco PA-C 2 [facility] [address] [place] [address] documented as of this encounter Visit Diagnoses Diagnosis Normal in second trimester Delivery by classical section- Primary Preeclampsia, severe, third trimester Anxiety Anxiety state, unspecified documented in this encounter Care Teams Earth Auger Operator Relationship Specialty Start Date End Date Sheridan Drew APRN [address] [place] [address] PCP - General Family Medicine 08/23/20 Jada Chicas, PhD [address] [place] [address] Clinical Psychologist Psychology 04/01/20 Perla Lepe MD [address] [place] [address] Obstetrics and Gynecology 12/06/24 documented as of this encounter
--- OUTSIDE RECORDS SUMMARY | 2025-06-07 20:19 | XMS_ITS | Encounter Summary ---
Author Organization [facility] Address [address] [place] [address] Phone Care Team Providers Care Supervisor Metalizing Name Role Phone Renay Collier MD Primary Care Provider [phone] Encounter Details Date Type Department Care Team (Late st Contact Info) Description 07/08/2011 Documentation [facility] Family Medicine [address] [place] [address] Family Medicine, Physician [address] [place] [phone] Social History Tobacco Use Types Packs/Day Years [...] on filedocumented in this encounter Care Teams Supervisor Metalizing Relationship Specialty Start Date End Date Renay Collier MD [address] [place] [address] [place] [address] PCP - General 04/23/17 10/28/22 documented as of this encounter
--- OUTSIDE RECORDS SUMMARY | 2025-06-07 20:19 | XMS_ITS | Encounter Summary ---
Author Organization [facility] Address [address] [place] [address] Phone Care Team Providers Care Summer Internship Name Role Phone Renay Collier MD Primary Care Provider [phone] Encounter Details Date Type Department Care Team (Late st Contact Info) Description 09/16/2011 Documentation [facility] [place] [address] [place] [address] Family Medicine, Physician [address] [place] [phone] Social History Tobacco Use Types Packs/Day Years [...] on filedocumented in this encounter Care Teams Summer Internship Relationship Specialty Start Date End Date Renay Collier MD [address] [place] [address] [place] [address] PCP - General 04/23/17 10/28/22 documented as of this encounter
--- OUTSIDE RECORDS SUMMARY | 2025-06-07 20:19 | XMS_ITS | Encounter Summary ---
Author Organization [facility] Address [address] [place] [address] Phone Care Team Providers Care Deck Engine Operator Name Role Phone Renay Collier MD Primary Care Provider [phone] Encounter Details Date Type Department Care Team (Late st Contact Info) Description 03/20/2011 Documentation [facility] Family Medicine [address] [place] [address] Family Medicine, Physician [address] [place], [place] [phone] Social History Tobacco Use Types Packs/Day Years [...] on filedocumented in this encounter Care Teams Deck Engine Operator Relationship Specialty Start Date End Date Renay Collier MD [address] [place] [address] [place] [address] PCP - General 04/23/17 10/28/22 documented as of this encounter
--- OUTSIDE RECORDS SUMMARY | 2025-06-07 20:19 | XMS_ITS | Encounter Summary ---
Author Organization [facility] Address [address] [place] [address] Care Team Providers Care Wound/Ostomy Nurse Name Role Phone Jada Chicas PhD Unavailable [phone] Sheridan Drew APRN Primary Care Provider [phone] Perla Lepe MD Unavailable Encounter Details Date Type Department Care Team (Late st Contact Info) Description 04/23/2025 Scanned Document [facility] Women's Ambulatory Health Services [address] [place] [phone] Gris García MD [address] [place] [address] Social History Tobacco Use Types Packs/Day Years Used Date Smoking Tobacco: Never Smokeless Tobacco: Never Alcohol Use Standard Drinks/Week Comments Yes 0 (1 standard drink = 0.6 oz pur e alcohol) [facility] Utilities Answer Date Recorded In the past 12 months has [employer], gas, oil, or water [facility] threatened to shut off services in your home? No 04/26/2025 Social Connection and Isolation Panel [NHANES] A nswer Date Recorded In a typical week, how many times do you talk on the phone with family, friends, or neighbors? Three times a week 02/26/2025 Frequency of Social Gatherin gs with Friends and Family Not on file 02/26/2025 Attends Shinto Services Not on file 02/26 Active Member of Clubs or Organizations Not on f ile 02/26/2025 Attends Club or Organization Meetings Not on jacob e 02/26/2025 Marital Status Not on file 02/26/2025 AUDIT-C Answer Date Recorded Q1: How often do you have a drink containing alcohol? Never 04/26/2025 Q2: How many drinks containi ng alcohol do you have on a typical day when you are drinking? Patient does not drink Q3: How often do you have si x or more drinks on one occasion? Never 04/26/2025 Overall Financial Resource Strain (CARDIA) Answe r Date Recorded How hard is it for you to pa y for the very basics like food, housing, medical care, and heating? Somewhat hard 06/02/2022 PHQ-2 Answer Date Recorded PHQ-2 Total Score 0 02/26/2025 [facility] of Occupat ional Health - Occupational Stress [...] the money to buy more. Never true 04/26/20 25 Within the past 12 months, t he food you bought just didn't last and you didn't have money to get more. Never true 04/26/2025 PRAPARE - Transportation Answer Date Re corded In the past 12 months, has l ack of transportation kept you from medical appointments or from getting medications? No 04/13 In the past 12 months, has l ack of transportation kept you from meetings, work, or from getting things needed for daily living? No 04/26/2025 Housing Stability Vital Sign Answer Mack e Recorded In the last 12 months, was t here a time when you were not able to pay the mortgage or rent on time? No 04/26/2025 In the past 12 months, how m any times have you moved where you were living? 0 04/26/2025 At any time in the past 12 m [facility], were you homeless or living in a care home (including now)? No 04/26/2025 Physical Activity Answer Date Recorded On average, [...] as of this encounter Functional Status * Audit-C Score Answer Date of Assessment Author 0 04/26/2025 6:00 PM EDT Nupur Pfeiffer RN * Question Answer Date of Assessment Author Q1: How often do you have a drink containing alcohol? Never 04/26/2025 6:00 PM EDT Nupur Pfeiffer RN Q2: How many drinks containing alcohol do you have on a typical day when you are drinking? Patient does not drink 04/26/2025 6:00 PM EDT Nupur Pfeiffer RN Q3: How often do you have six or more drinks on one occasion? Never 04/26/2025 6:00 PM EDT Nupur Pfeiffer RN documented as of this encounter Plan of Treatment Upcoming Encounters Date Type Department Care Team (Late st Contact Info) Description 06/12/2025 9:00 AM EDT Visit [facility] Women's Ambulatory Health Services [address] [place] [phone] Drea Paredes MD [address] [place] [address] 06/13/2025 2:00 PM EDT Office Visit [facility] Cardiology [address] [place] [phone] Adelso Esparza, JEWEL [address] [place] [address] [place] [address] 07/05/2025 3:00 PM EDT Consult [facility] Medical Weight Loss [address], [place] [phone] Sheeba Rojo PA-C 330 [facility] 200 [place] [address] Breonna Orozco PA-C 2 [facility] 100 [place] [address] documented as of this encounter Visit Diagnoses Not on filedocumented in this encounter Care Teams Wound/Ostomy Nurse Relationship Specialty Start Date End Date Sheridan Drew APRN [address] [place], [place] PCP - General Family Medicine 08/23/20 Jada Chicas, PhD 200 [facility], [address] [place] [address] Clinical Psychologist Psychology 04/01/20 Perla Lepe MD [address] [place] [address] Obstetrics and Gynecology 12/06/24 documented as of this encounter
--- OUTSIDE RECORDS SUMMARY | 2025-06-07 20:19 | XMS_ITS | Encounter Summary ---
Author Organization [facility] Address [address] [place] [address] Care Team Providers Care Recreation Program Specialist Name Role Phone Jada Chicas PhD Unavailable [phone] Sheridan Drew APRN Primary Care Provider [phone] Perla Lepe MD Unavailable Reason for Visit * Reason Onset Date Comments Medication Refill 04/23/2025 Encounter Details Date Type Department Care Team (Late st Contact Info) Description 04/23/2025 Refill [facility] [address] [place] [phone] Obdulia Santoyo DO [address] [place], [place] [phone] Normal in second trimester Social History Tobacco Use Types Packs/Day Years Used Date Smoking Tobacco: Never Smokeless Tobacco: Never Alcohol Use Standard Drinks/Week Comments Yes 0 (1 standard drink = 0.6 oz pur e alcohol) [facility] Utilities Answer Date Recorded In the past 12 months has [employer], gas, oil, or water company threatened to shut off services in your home? No 04/26/2025 Social Connection and Isolation Panel [NHANES] A nswer Date Recorded In a typical week, how many times do you talk on the phone with family, friends, or neighbors? Three times a week 02/26/2025 Frequency of Social Gatherin gs with Friends and Family Not on file 02/26/2025 Attends [employer] Not on file 02/26 Active Member [...] Date Recorded PHQ-2 Total Score 0 02/26/2025 [facility] of Occupat ional Health - [...] were you homeless or living in a chcf (including now)? No 04/26/2025 Physical Activity Answer [...] Never 04/26/2025 6:00 PM EDT Nupur Pfeiffer , WILLY documented as of this encounter Plan of Treatment Upcoming Encounters Date Type Department Care Team (Late st Contact Info) Description 06/12/2025 9:00 AM EDT Visit [facility] [address] [place] [phone] Drea Paredes MD [address] [place] [address] 06/13/2025 2:00 PM EDT Office Visit [facility] Cardiology [address] [place] [phone] Adelso Esparza APRN [address] [place] [address] [place] [address] 07/05/2025 3:00 PM EDT Consult [facility] Medical Weight Loss [place] [address] [place], [place] [phone] Sheeba Rojo PA-C 330 [facility] 200 [place] [address] Breonna Orozco PA-C 2 [facility] [address] [place] [address] documented as of this encounter Visit Diagnoses Diagnosis Normal in second trimester Delivery by classical section- Primary Preeclampsia, severe, third trimester Anxiety Anxiety state, unspecified documented in this encounter Care Teams Recreation Program Specialist Relationship Specialty Start Date End Date Sheridan Drew APRN [address] [place], [place] PCP - General Family Medicine 08/23/20 Jada Chicas, PhD 200 [facility], [address] [place] [address] Clinical Psychologist Psychology 04/01/20 Perla Lepe MD [address] [place] [address] Obstetrics and Gynecology 12/06/24 documented as of this encounter
--- OUTSIDE RECORDS SUMMARY | 2025-06-07 20:19 | XMS_ITS | Encounter Summary ---
Author Organization [facility] Address [address] [place] [address] Care Team Providers Care High School Music Instructor Name Role Phone Jada Chicas PhD Unavailable [phone] Sheridan Drew APRN Primary Care Provider [phone] Perla Lepe MD Unavailable Encounter Details Date Type Department Care Team (Late st Contact Info) Description 04/05/2025 Scanned Document [facility] [address] [place] [address] Sheridan Drew APRN [address] [place] [address] Social History Tobacco Use Types Packs/Day Years Used Date Smoking Tobacco: Never Smokeless Tobacco: Never Alcohol Use Standard Drinks/Week Comments Yes 0 (1 standard drink = 0.6 oz pur e alcohol) [facility] Utilities Answer Date Recorded In the past 12 months has [employer], gas, oil, or water [employer] threatened to shut off services in your [...] Date Recorded PHQ-2 Total Score 0 02/26/2025 [facility] of Occupat ional Health - Occupational Stress [...] any time in the past 12 m [facility], were you homeless or living in a chcf (including now)? No 02/26/2025 Physical Activity Answer [...] [facility] [address] [place] [phone] Drea Paredes MD [address] [place] [address] 06/13/2025 2:00 PM EDT Office Visit [facility] Cardiology [address] [place] [phone] Adelso Esparza APRN [address] [place] [address] [place] [address] 07/05/2025 3:00 PM EDT Consult [facility] Medical Weight Loss [place] [address] [place], [place] [phone] Sheeba Rojo PA-C [address] [place] [address] Breonna Orozco PA-C [address] [address] documented as of this encounter Visit Diagnoses Not on filedocumented in this encounter Care Teams High School Music Instructor Relationship Specialty Start Date End Date Sheridan Drew APRN [address] [place] [address] PCP - General Family Medicine 08/23/20 Jada Chicas, PhD [address] [place] [address], [address] [place] [address] Clinical Psychologist Psychology 04/01/20 Perla Lepe MD [address] [place] [address] Obstetrics and Gynecology 12/06/24 documented as of this encounter
--- OUTSIDE RECORDS SUMMARY | 2025-06-07 20:19 | XMS_ITS | Encounter Summary ---
Author Organization [facility] Address [address] [place] [address] Care Team Providers Care Cork Tipper Name Role Phone Jada Chicas PhD Unavailable [phone] Sheridan Drew APRN Primary Care Provider [phone] Perla Lepe MD Unavailable Encounter Details Date Type Department Care Team (Late st Contact Info) Description 04/17/2025 Scanned Document [facility] [address] [place] [phone] Drea Paredes MD [address] [place] [address] Social History Tobacco Use Types Packs/Day Years Used Date Smoking Tobacco: Never Smokeless Tobacco: Never Alcohol Use Standard Drinks/Week Comments Yes 0 (1 standard drink = 0.6 oz pur e alcohol) [facility] Utilities Answer Date Recorded In the past 12 months has [employer], gas, oil, or water [employer] threatened to shut off services in your home? No 02/26/2025 Social Connection and Isolation Panel [NHANES] A nswer Date Recorded In a typical week, how many times do you talk on the phone with family, friends, or neighbors? Three times a week 02/26/2025 Frequency of Social Gatherin gs with Friends and Family Not on file 02/26/2025 Attends [employer] Services Not on file 02/26 Active Member [...] Date Recorded PHQ-2 Total Score 0 02/26/2025 [facility] of Occupat ional Health - Occupational Stress [...] any time in the past 12 m [facility], were you homeless or living in [...] Visit [facility] [address] [place] [phone] Drea Paredes MD [address] [place] [address] 06/13/2025 2:00 PM EDT Office Visit [facility] Cardiology [address] [place] [phone] Adelso Esparza APRN [address] [place] [address] [place] [address] 07/05/2025 3:00 PM EDT Consult [facility] Medical Weight Loss [place] [address] [place] [address] Sheeba Rojo PA-C [address] [place] [address] Breonna Orozco PA-C [address] [address] documented as of this encounter Visit Diagnoses Not on filedocumented in this encounter Care Teams Cork Tipper Relationship Specialty Start Date End Date Sheridan Drew APRN [address] [place] [address] [place] [address] PCP - General Family Medicine 08/23/20 Jada Chicas, PhD [address] [place] [address], [address] [place] [address] Clinical Psychologist Psychology 04/01/20 Perla Lepe MD [address] [place] [address] Obstetrics and Gynecology 12/06/24 documented as of this encounter
--- OUTSIDE RECORDS SUMMARY | 2025-06-07 20:19 | XMS_ITS | Encounter Summary ---
Author Organization [facility] Address [address] [place] [address] Care Team Providers Care Bank Runner Name Role Phone Jada Chicas PhD Unavailable [phone] Sheridan Drew APRN Primary Care Provider [phone] Sheridan Drew APRN Unavailable [phone] Perla Lepe MD Unavailable Encounter Details Date Type Department Care Team (Late st Contact Info) Description 11/08/2020 Scanned Document [address] [phone] Cardiology, Scan Social History Tobacco Use Types Packs/Day [...] have Coronavirus / COVID-19? No / Unsure 11/06/2020 1:35 PM EST documented as of this encounter Plan of Treatment Upcoming Encounters Date Type Department Care Team (Late st Contact Info) Description 06/12/2025 9:00 AM EDT Visit [facility] [address] [place] [phone] Drea Paredes MD [address] [place], [place] [phone] 06/13/2025 2:00 PM EDT Office Visit [facility] Cardiology [place] [address] [place] [phone] Adelso Esparza, BASKET TURNER [address] [place] [facility] [address] [place] [address] 07/05/2025 3:00 PM EDT Consult [facility] Medical Weight Loss [place] [address] [place] [address] Sheeba Rojo PA-C [address] [address] Breonna Orozco PA-C 2 [facility] 100 [place] [address] documented as of this encounter Visit Diagnoses Not on filedocumented in this encounter Care Teams Bank Runner Relationship Specialty Start Date End Date Sheridan Drew APRN [address] [place] [address] PCP - General Family Medicine 08/23/20 Sheridan Drew APRN [address] [place] [address] PCP - PCMH+ Attributed 09/13/21 Jada Chicas, PhD [address] [place] [facility], 2nd [place] [address] Clinical Psychologist Psychology 04/01/20 Perla Lepe MD [address] [place] [address] Obstetrics and Gynecology 12/06/24 documented as of this encounter
--- OUTSIDE RECORDS SUMMARY | 2025-06-07 20:19 | XMS_ITS | Encounter Summary ---
Author Organization [facility] Address [address] [place] [address] Care Team Providers Care Lay Ups Assembler Name Role Phone Jada Chcias PhD Unavailable [phone] Sheridan Drew APRN Primary Care Provider [phone] Perla Lepe MD Unavailable Encounter Details Date Type Department Care Team (Late st Contact Info) Description 03/13/2025 Telephone [facility] [address] [place] [address] Michael Perez, [place] [address] [place] [address] Social History Tobacco Use Types Packs/Day Years Used Date Smoking Tobacco: Never Smokeless Tobacco: Never Alcohol Use Standard Drinks/Week Comments Yes 0 (1 standard drink = 0.6 oz pur e alcohol) [facility] Utilities Answer Date Recorded In the past 12 months has [employer], gas, oil, or water [employer] threatened to shut off services in your home? No 02/26/2025 Social Connection and Isolation Panel [NHANES] A nswer Date Recorded In a typical week, how many times do you talk on the phone with family, friends, or neighbors? Three times a week 02/26/2025 Frequency of Social Gatherin gs with Friends and Family Not on file 02/26/2025 Attends [employer] Services Not on file 02/26 Active Member [...] Date Recorded PHQ-2 Total Score 0 02/26/2025 [facility] of Occupat ional Health - Occupational Stress [...] any time in the past 12 m [facility], were you homeless or living in [...] PM EST documented as of this encounter Last Filed Vital Signs Vital Sign Reading Time Taken Comments Blood Pressure 145/75 03/13/2025 3:12 PM EDT Pulse 107 03/13/2025 3:12 PM EDT Temperature - - Respiratory Rate - - Oxygen Saturation - - Inhaled Oxygen Concentration - - Weight - - Height - - Body Mass Index - - documented in this encounter Miscellaneous Notes * Telephone Encounter - Jeanette Lorenzana RN - 03/13/2025 3:54 PM EDT Pt called back. No answer. VM left with recommendation to present to L&D for further evaluationper . pt advised to present to through ED. Pt advised to call clinic back with any questions. Advised if after 4 call will rollover to L&D. [employer] message sent as well. 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 She had taken her 90 mg of nifedipine at about 0830. Prior to phone call today she states that she started to feel warn, and was hyperventilating. She checked her BP and it was 150/77.She felt like her heart was racing as well. While on phone pt rechecked BP to be 145/75 and HR was 107. She denies blurred vision of spots, chest pain, or current difficulty breathing. She does endorse a headache which is frontal above eyes. Pt took tylenol (650 x2 1 hour ago). Denies any change to headache so far. Pt notes sore throat since yesterday without swelling or redness. Pt has felt nauseous today w/o vomiting. Pt has not checked a temperature as she is w/o thermometer but notes she felt like she was having hot flash rather than fever. Pt endorsing +FM without VB or LOF. Pt w/o and sinus tenderness While starting to ask additional questions. Phone disconnected. Pt called back by this RN but phonegiving bust signal x2 attempts. 3:23 pt called back again and able to be reached. Pt reports that she is resting not and not feeling hot, tachycardic or as if she is having difficulty breathing. Pt notes symptoms lasted for about 20 minutes. She was working from home and denies feeling anxious. Only persistent symptom is h/a and sore throat. Pt encouraged to rest, hydrate and continue to monitor BP. If symptoms reoccur she is to call back.Pt advised on comfort measures for sore throat and recommendation to acquire thermometer to be ableto monitor temperature in case feeling febrile. If difficulty swallowing or breathing she is to report to Ed. If worsening throat pain she can be sen by PCP/urgent care for r/o strep. Pt to call backif h/a not improving with rest, tylenol or hydration. Pt also advised that max tylenol dose in 1000mg q6 hours. Provider to be consulted regarding any further recommendations. documented in this encounter Plan of Treatment Upcoming Encounters Date Type Department Care Team (Late st Contact Info) Description 06/12/2025 9:00 AM EDT Visit [facility] [address] [place] [phone] Drea Paredes MD [address] [place] [address] 06/13/2025 2:00 PM EDT Office Visit [facility] Cardiology [address] [place] [address] [phone] Adelso Esparza APRN 100 [place] [facility] [address] [place] [address] 07/05/2025 3:00 PM EDT Consult [facility] Medical Weight Loss [place] 256 [place] [address] Sheeba Rojo PA-C 330 [facility] 200 [place] [address] Breonna Orozco PA-C 2 [facility] 100 [place] [address] documented as of this encounter Visit Diagnoses Not on filedocumented in this encounter Care Teams Lay Ups Assembler Relationship Specialty Start Date End Date Sheridan Drew APRN [address] [place] [address] PCP - General Family Medicine 08/23/20 Jada Chicas, PhD 200 [facility], 2nd [place] [address] Clinical Psychologist Psychology 04/01/20 Perla Lepe MD [address] [place] [address] Obstetrics and Gynecology 12/06/24 documented as of this encounter
--- OUTSIDE RECORDS SUMMARY | 2025-06-07 20:19 | XMS_ITS | Encounter Summary ---
Author Organization [facility] Address [address] [place] [address] Care Team Providers Care Crown Attacher Name Role Phone Jada Chicas PhD Unavailable [phone] Sheridan Drew APRN Primary Care Provider [phone] Perla Lepe MD Unavailable Encounter Details Date Type Department Care Team (Late st Contact Info) Description 03/21/2025 Scanned Document [facility] [address] [place] [address] Sheridan Drew APRN 256 [place] [address] Social History Tobacco Use Types Packs/Day Years Used Date Smoking Tobacco: Never Smokeless Tobacco: Never Alcohol Use Standard Drinks/Week Comments Yes 0 (1 standard drink = 0.6 oz pur e alcohol) [facility] Utilities Answer Date Recorded In the past 12 months has [employer], gas, oil, or water [employer] threatened to shut off services in your home? No 02/26/2025 Social Connection and Isolation Panel [NHANES] A nswer Date Recorded In a typical week, how many times do you talk on the phone with family, friends, or neighbors? Three times a week 02/26/2025 Frequency of Social Gatherin gs with Friends and Family Not on file 02/26/2025 Attends Taoist Services Not on file 02/26 Active Member [...] Date Recorded PHQ-2 Total Score 0 02/26/2025 [facility] of Occupat ional Health - Occupational Stress [...] were you homeless or living in a detention (including now)? No 02/26/2025 Physical Activity Answer [...] Info) Description 06/12/2025 9:00 AM EDT Visit [facility] [address] [place] [phone] Drea Paredes MD [address] [place] [address] 06/13/2025 2:00 PM EDT Office Visit [facility] Cardiology [address] [place] [phone] Adelso Esparza APRN [address] [place] [address] [place] [address] 07/05/2025 3:00 PM EDT Consult [facility] Medical Weight Loss [place] [address] [place], [place] [phone] Sheeba Rojo PA-C [address] [place] [address] Breonna Orozco PA-C [address] [address] documented as of this encounter Visit Diagnoses Not on filedocumented in this encounter Care Teams Crown Attacher Relationship Specialty Start Date End Date Sheridan Drew APRN [address] [place] [address] PCP - General Family Medicine 08/23/20 Jada Chicas, PhD [address] [place] [address], [address] [place] [address] Clinical Psychologist Psychology 04/01/20 Perla Lepe MD [address] [place] [address] Obstetrics and Gynecology 12/06/24 documented as of this encounter
--- OUTSIDE RECORDS SUMMARY | 2025-06-07 20:19 | XMS_ITS | Encounter Summary ---
Author Organization [facility] Address [address] [place] [address] Phone Care Team Providers Care Biology Manager Name Role Phone Renay Collier MD Primary Care Provider [phone] Encounter Details Date Type Department Care Team (Late st Contact Info) Description 03/20/2011 Documentation [facility] Family Medicine [address] [place] [address] Family Medicine, Physician [address] [place], [place] [phone] Social History Tobacco Use Types Packs/Day Years [...] on filedocumented in this encounter Care Teams Biology Manager Relationship Specialty Start Date End Date Renay Collier MD [address] [place] [address] [place] [address] PCP - General 04/23/17 10/28/22 documented as of this encounter
--- OUTSIDE RECORDS SUMMARY | 2025-06-07 20:19 | XMS_ITS | Encounter Summary ---
Author Organization [facility] Address [address] [place] [address] Phone Care Team Providers Care Agronomy Instructor Name Role Phone Renay Collier MD Primary Care Provider [phone] Encounter Details Date Type Department Care Team (Late st Contact Info) Description 09/16/2011 Documentation [facility] Family Medicine [address] [place] [address] Family Medicine, Physician [address] [place] [phone] Social History Tobacco Use Types Packs/Day Years [...] on filedocumented in this encounter Care Teams Agronomy Instructor Relationship Specialty Start Date End Date Renay Collier MD [address] [place] [address] [place] [address] PCP - General 04/23/17 10/28/22 documented as of this encounter
--- OUTSIDE RECORDS SUMMARY | 2025-06-07 20:19 | XMS_ITS | Encounter Summary ---
Author Organization [facility] Address [address] [place] [address] Care Team Providers Care Editor Map Name Role Phone Jada Chicas PhD Unavailable [phone] Sheridan Drew APRN Primary Care Provider [phone] Sheridan Drew APRN Unavailable [phone] Perla Lepe MD Unavailable Encounter Details Date Type Department Care Team (Late st Contact Info) Description 11/08/2020 Scanned Document [address] [phone] Provider, Generic Social History Tobacco Use Types Packs/Day Years [...] [facility] [address] [place] [phone] Drea Paredes MD [address] [place], [place] [phone] 06/13/2025 2:00 PM EDT Office Visit [facility] Cardiology [place] [address] [place] [phone] Adelso Esparza, JEWEL [address] [place] [address] 07/05/2025 3:00 PM EDT Consult [facility] Medical Weight Loss [place] 256 [place] [address] Sheeba Rojo PA-C 330 [facility] 200 [place] [address] Breonna Orozco PA-C 2 [facility] 100 [place] [address] documented as of this encounter Procedures Procedure Name Priority Date/Time Associated Diagnosis Comments HOLTER MONITOR REPORT 11/08/2020 documented in this encounter Results * HOLTER MONITOR REPORT (11/08/2020) Anatomical Region Laterality Modality Other Narrative 11/08/2020 Ordered by an unspecified provider. us Generic Provider HX AMB PROCEDURES Final Result documented in this encounter Visit Diagnoses Not on filedocumented in this encounter Care Teams Editor Map Relationship Specialty Start Date End Date Sheridan Drew APRN [address] [place] [address] PCP - General Family Medicine 08/23/20 Sheridan Drew APRN [address] [place] [address] PCP - PCMH+ Attributed 09/13/21 Jada Chicas, PhD [address] [place] [address], [address] [place] [address] Clinical Psychologist Psychology 04/01/20 Perla Lepe MD [address] [place] [address] Obstetrics and Gynecology 12/06/24 documented as of this encounter
--- OUTSIDE RECORDS SUMMARY | 2025-06-07 20:19 | XMS_ITS | Patient Health Record ---
Author Organization [facility] Address [address] [facility] [address] [place] [address] Care Team Providers Care Society Editor Name Role Phone None, None Primary Care Provider Unavailabl e Allergies No Known Allergies Reason For Referral No Information Medications Medication SIG (Take, Route, Frequency, Duration) Notes Start Date End Date Status Wellbutrin Active Social History Social History Additional Details Category Social Info Options Details Pediatric - Adult Employed? Yes Problems Problem Type SNOMED Code ICD Code Onset Dates Problem Status W/U Status Risk Notes Problem Allergic rhinitis (31894627) Allergic rhinitis, unspecified seasonality, unspecified trigger (J30.9) Active confirmed Plan Of Treatment No Information Insurance Providers Payer Name Payer Address Payer Phone Subscriber Number Group Number Insured Name Patient Relationship to Insured Coverage Start Date Coverage End Date [employer] [address] [place], [place] [id number] [phone] [id number] Fartun Rocha Self - patient is the insured 2 Medical (General) History Medical History History ICD Code History of hypertension Z86.79 History of prediabetes Z87.898 Surgical History Surgery Date(Month/Year) Gastric sleeve Appendectomy Hospitalization History Reason Date(Month/Year) Gastric sleeve appendicitis
[2025-06-07] MEDS: Diphth,Pertus(ACell),Tet Adult 0.5 ML SYRINGE IM (20:43)
[2025-06-07 22:03] VITALS: BP 156/94; PULSE 84; RESP 20; TEMP 36.8; O2SAT 96
[2025-06-07 22:43] VITALS: BP 156/94; PULSE 84; RESP 20; TEMP 36.8; O2SAT 96
== END 2025-06-07 22:43 | disposition home or self-care (01) ==
PROVIDERS: Emergency Provider Student in an Organized Health Care Education/Training Program
DX: S00.212A Abrasion of left eyelid and periocular area, initial encounter (principal); W10.8XXA Fall (on) (from) other stairs and steps, initial encounter; Y93.9 Activity, unspecified; Y92.9 Unspecified place or not applicable; Y99.9 Unspecified external cause status; Z23 Encounter for immunization
CPT/HCPCS: 36415; 70450; 72125; 73080; 80053; 84702; 85025; 90471; 90715; 93005; 99284; 99285

== ENCOUNTER → 2025-06-07 19:09 | Outpatient (BNV) | payer OTHER, MEDICAID, SELFPAY | PROVIDERS: Emergency Provider Student in an Organized Health Care Education/Training Program; Visit Provider Internal Medicine Cardiovascular Disease | DX: R94.31 Abnormal electrocardiogram [ECG] [EKG] (principal); R42 Dizziness and giddiness | CPT/HCPCS: 93010 ==

== ENCOUNTER → 2025-06-07 19:50 | Outpatient (BNV) | payer OTHER, MEDICAID, SELFPAY | PROVIDERS: Emergency Provider Student in an Organized Health Care Education/Training Program; Visit Provider Student in an Organized Health Care Education/Training Program | DX: M54.2 Cervicalgia (principal); S09.90XA Unspecified injury of head, initial encounter; M25.521 Pain in right elbow | CPT/HCPCS: 70450; 72125; 73080 ==